=== PATIENT | male | born 1960 | race Caucasian/White ===

== ENCOUNTER 2020-06-15 01:54 | Emergency (ER) | payer SELFPAY ==
--- OUTSIDE RECORDS SUMMARY | 2020-06-15 02:03 | XMS ---
:1960 Author Organization [facility] Support Name Relationship Address Phone UE Unavailable Unavailable Unavailable JULES JACOBSON SISTER [address] [facility] [place] [address] Re-disclosure Warning The records that you are about to access may contain information from federally- assisted alcohol or drug abuse programs. If such information is present, then the following federally mandated warning applies: This information has been disclosed to you from records protected by federal confidentiality rules (42 CFR part 2). The federal rules prohibit you from making any further disclosure of this information unless further disclosure is expressly permitted by the written consent of the person to whom it pertains or as otherwise permitted by 42 CFR part 2. A general authorization for the release of medical or other information is NOT sufficient for this purpose. The Federal rules restrict any use of the information to criminally investigate or prosecute any alcohol or drug abuse patient.The records that you are about to access may contain highly sensitive health information, the redisclosure of which is protected by Article 27-F of the [facility] Public Health law. If you continue you may haveaccess to information: Regarding HIV / AIDS; Provided by facilities licensed or operated by the [facility] Office of Mental Health; or Provided by the [facility] Office for People With Developmental Disabilities. If such information is present, then the following [facility] mandated warning applies: This information has been disclosed to you from confidential records which are protected by state law. State law prohibits you from making any further disclosure of this information without the specific written consent of the person to whom it pertains, or as otherwise permitted by law. Any unauthorized further disclosure in violation of state law may result in a fine or long term sentence or both. A general authorization for the release of medical or other information is NOT sufficient authorization for further disclosure. Insurance Providers Payer name Policy type Policy ID Covered Covered republican's Policy P cathy / Coverage republican ID relationship to Baires Inf ormation type baires SELF PAY SP INSURANCE
[2020-06-15 02:15] VITALS: TEMP 98.3; BMI 29.2
[2020-06-15] MEDS ORDERED: diphenhydrAMINE HCL 50 MG CAPSULE PO ONE (02:46)
[2020-06-15] MEDS ORDERED: predniSONE 20 MG TABLET (UD) PO ONE (02:46)
[2020-06-15] MEDS ORDERED: FAMOTIDINE 20 MG TABLET PO ONE (02:46)
--- NOTE | 2020-06-15 02:47 | PDOC ---
History of Present Illness - General Chief Complaint: Rash Stated Complaint: RASH Time Seen by Provider: 06/15/20 02:21 - History of Present Illness Initial Comments: 06/15/20 03:44 59 yo male with pmh of IDDM presents for rash that has gone for one day. Pt explains he has had similar rash when he took penicillin. PT does explain the rash is all over his body but not on his hands soles, palms, or face. Pt says rash is very itchy. Pt denies any new detergents, soaps, or substances. Pt does drink milk with coffee and has been doing that for many years. Pt denies n/v/d/c, sob, chest pain, fever, chills, recent travel, or insect bite. PMH: DM MEDS: insulin PSH: denies Allergies: penicill Social: denies smoking drinking or drugs Past History - Medical History Allergies/Adverse Reactions: Allergies Allergy/AdvReac Type Severity Reaction Status Date / Time Penicillins Allergy Verified 06/15/20 02:07 Home Medications: Ambulatory Orders Glyburide 5 mg PO DAILY 05/08/12 metFORMIN HCL [Glucophage] 1,000 mg PO BID 05/08/12 Insulin (Levemir) [Levemir Flexpen -] 10 units SQ HS #1 pen 09/23/16 Insulin (Levemir) [Levemir Vial] 10 units SQ HS #0 ml 09/23/16 Insulin Aspart [Novolog Flexpen] 1 unit SQ TID #1 insuln.pen 09/23/16 Insulin Sliding Scale [Novolog Vial Sliding Scale -] 1 vial SQ TIDAC #0 units 09/23/16 Diabetes: Yes (NIDDM) - Psycho-Social/Smoking History Smoking Status: No Smoking History: Never smoked Have you smoked in the past 12 months: No Number of Cigarettes Smoked Daily: 0 If you are a former smoker, when did you quit?: 15 years ago Information on smoking cessation initiated: No - Substance Abuse Hx (Audit-C & DAST Scrn) How often the patient has a drink containing alcohol: Never Score: In Men: 4 or > Positive; In Women: 3 or > Positive: 0 Screen Result (Pos requires Nsg. Audit-10AR): Negative In the last yr the pt used illegal drug/Rx for NonMed reason: No Score: Yes response is considered Positive: 0 Screen Result (Positive result requires Nsg. DAST-10): Negative Review of Systems - Review of Systems Comments:: 06/15/20 03:59 GENERAL/CONSTITUTIONAL: No fever or chills. No weakness. HEAD, EYES, EARS, NOSE AND THROAT: No change in vision. No ear pain or discharge. No sore throat. CARDIOVASCULAR: No chest pain or shortness of breath RESPIRATORY: No cough, wheezing, or hemoptysis. GASTROINTESTINAL: No nausea, vomiting, diarrhea or constipation. GENITOURINARY: No dysuria, frequency, or change in urination. MUSCULOSKELETAL: No joint or muscle swelling or pain. No neck or back pain. NEUROLOGIC: No headache, vertigo, loss of consciousness, or change in strength/sensation. ENDOCRINE: No increased thirst. No abnormal weight change HEMATOLOGIC/LYMPHATIC: No anemia, easy bleeding, or history of blood clots. ALLERGIC/IMMUNOLOGIC:Hives *Physical Exam - Vital Signs Last Vital Signs Temp Pulse Resp BP Pulse Ox 98.3 F 88 20 148/81 100 06/15/20 02:07 06/15/20 02:07 06/15/20 02:07 06/15/20 02:07 06/15/20 02:07 - Physical Exam 06/15/20 03:59 GENERAL: Awake, alert, and fully oriented, in no acute distress HEAD: No signs of trauma, normocephalic, atraumatic EYES: PERRLA, EOMI, sclera anicteric, conjunctiva clear ENT: Auricles normal inspection, hearing grossly normal, nares patent, oropharynx clear without exudates. Moist mucosa NECK: Normal ROM, supple, no lymphadenopathy, JVD, or masses LUNGS: No distress, speaks full sentences, clear to auscultation bilaterally HEART: Regular rate and rhythm, normal S1 and S2, no murmurs, rubs or gallops, peripheral pulses normal and equal bilaterally. ABDOMEN: Soft, nontender, normoactive bowel sounds. No guarding, no rebound. No masses EXTREMITIES : Normal inspection, Normal range of motion, no edema. No clubbing or cyanosis. NEUROLOGICAL: Cranial nerves II through XII grossly intact. Normal speech, normal gait, no focal sensorimotor deficits SKIN: nonblanching hives on extremities, back, and abdomen, buttock and genital. NO lesions noted on palms, soles. No lesions noted on oral mucosa. Exam chaperoned by RAUL Beltre. Medical Decision Making - Medical Decision Making 06/15/20 02:52 59 yo IDDM presents to the ED with rash that started yesterday morning. Pt explains rash is entire body and is itchy and feels similar to his penicillin rash. Pt denies any new detergent, soap, eathing anything new, or any new s ubstance. Will give prednisone, pepcid, and benadryl. Will DC home with 10 of decadron to take tomorrow. Will tell patient to continue taking benadryl for symptomatic relief. Pt after initial medication has felt better so will Discharge. Discharge - Discharge Information Problems reviewed: Yes Clinical Impression/Diagnosis: Food allergy Allergy Qualifiers: Encounter type: initial encounter Qualified Code(s): T78.40XA - Allergy, unspecified, initial encounter Condition: Improved Disposition: HOME - Follow up/Referral Referrals: Avelino Goldman MD [Primary Care Provider] - - Patient Discharge Instructions Patient Printed Discharge Instructions: CHRIS Novak for Food Allergy Additional Instructions: You came to the ED for a rash. This is most likely due to an allergic reaction possibly due to milk. At the ED we gave you pepcid, benadryl, and steroids. We gave you a decadron (steroid) to take at home with you. You should take the medication in 24 hours. You should also take benadryl every 6 hours for itchiness. Please follow up with your pcp within the next few days. If you have any of the following please return: - worsening symptoms - if you have trouble breathing - if you have a rash with fever or nausea and vomiting For any emergent symptoms please call for medical help right away. - Post Discharge Activity
[2020-06-15] MEDS ORDERED: predniSONE 20 MG TABLET (UD) ONE (02:49)
[2020-06-15] MEDS ORDERED: FAMOTIDINE 20 MG TABLET ONE (02:50)
[2020-06-15] MEDS ORDERED: diphenhydrAMINE HCL 25 MG CAPSULE (FP) PO ONE (02:50)
[2020-06-15] MEDS ORDERED: DEXAMETHASONE SOD PHOSPHATE 10 MG/1 ML VIAL PO ONE (03:13)
[2020-06-15] MEDS ORDERED: DEXAMETHASONE SOD PHOSPHATE 10 MG/1 ML VIAL ONE (03:34)
--- NOTE | 2020-06-15 03:39 | PDOC ---
Attending Attestation - Resident Resident Name: AbAlonso - ED Attending Attestation I have performed the following: I have examined & evaluated the patient, The case was reviewed & discussed with the resident, I agree w/resident's findings & plan - HPI HPI: 06/15/20 03:33 Pt comes with allergic reaction. 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 - Physicial Exam PE: 06/15/20 03:43 Pt has hives all over his body; he has been scratching so much that he has abrasions on his skin on arms and trunk - Medical Decision Making 06/15/20 03:43 Home with decadron and benadryl Pt asked to keep a food diary. 06/15/20 04:50 Likely milk allergy Discharge - Discharge Information Problems reviewed: Yes Clinical Impression/Diagnosis: Food allergy Allergy Qualifiers: Encounter type: initial encounter Qualified Code(s): T78.40XA - Allergy, unspecified, initial encounter Condition: Improved Disposition: HOME - Follow up/Referral Referrals: Avelino Goldman MD [Primary Care Provider] - - Patient Discharge Instructions Patient Printed Discharge Instructions: CHRIS Novak for Food Allergy Additional Instructions: You came to the ED for a rash. This is most likely due to an allergic reaction possibly due to milk. At the ED we gave you pepcid, benadryl, and steroids. We gave you a decadron (steroid) to take at home with you. You should take the medication in 24 hours. You should also take benadryl every 6 hours for itchiness. Please follow up with your pcp within the next few days. If you have any of the following please return: - worsening symptoms - if you have trouble breathing - if you have a rash with fever or nausea and vomiting For any emergent symptoms please call for medical help right away. - Post Discharge Activity
[2020-06-15 03:41] VITALS: BP 138/78; PULSE 80
== END 2020-06-15 03:45 | disposition home or self-care (01) ==
LOC: JER 01:54
DX: T78.40XA Allergy, unspecified, initial encounter (principal); Z91.018 Allergy to other foods
CPT/HCPCS: 82962; 99283-25; J1100

== ENCOUNTER 2020-06-15 22:02 | Emergency (ER) | payer OTHER ==
[2020-06-15 22:05] VITALS: TEMP 97.3; BMI 29.2
--- OUTSIDE RECORDS SUMMARY | 2020-06-15 22:21 | XMS ---
:1960 Author Organization [facility] Support Name Relationship Address Phone UE Unavailable Unavailable Unavailable JULES JACOBSON SISTER [address] [facility] [place] [address] JULES JACOBSON Sister [address] [facility] [place] [address] Re-disclosure Warning The records that you are [...] is protected by Article 27-F of the [facility] Public Health law. If you continue you may haveaccess to information: Regarding HIV / AIDS; Provided by facilities licensed or operated by the [facility] Office of Mental Health; or Provided by the [facility] Office for People With Developmental Disabilities. If such information is present, then the following [facility] mandated warning applies: This information has [...] law may result in a fine or nursing home sentence or both. A general authorization for the release of medical or other information is NOT sufficient authorization for further disclosure. Insurance Providers Payer name Policy type Policy ID Covered Covered libertarian's Policy P cathy / Coverage libertarian ID relationship to Baires Inf ormation type baires SELF PAY SP INSURANCE
--- NOTE | 2020-06-15 22:26 | PDOC ---
History of Present Illness - General Chief Complaint: Rash Stated Complaint: RASH Time Seen by Provider: 06/15/20 22:25 - History of Present Illness Initial Comments: 06/15/20 23:27 59yo M with PMHx DM bounceback from last night for a rash that has grown to flexor and extensor surfaces of his arms and legs, and his torso, back, and his inner thighs. It spares his palms and soles. Past History - Medical History Allergies/Adverse Reactions: Allergies Allergy/AdvReac Type Severity Reaction Status Date / Time Penicillins Allergy Verified 06/15/20 22:05 Home Medications: Ambulatory Orders Glyburide 5 mg PO DAILY 05/08/12 metFORMIN HCL [Glucophage] 1,000 mg PO BID 05/08/12 Insulin (Levemir) [Levemir Flexpen -] 10 units SQ HS #1 pen 09/23/16 Insulin (Levemir) [Levemir Vial] 10 units SQ HS #0 ml 09/23/16 Insulin Aspart [Novolog Flexpen] 1 unit SQ TID #1 insuln.pen 09/23/16 Insulin Sliding Scale [Novolog Vial Sliding Scale -] 1 vial SQ TIDAC #0 units 09/23/16 COPD: No Diabetes: Yes (NIDDM) - Immunization History Td Vaccination: Yes Immunization Up to Date: Yes - Psycho-Social/Smoking History Smoking Status: No Smoking History: Never smoked Have you smoked in the past 12 months: No Number of Cigarettes Smoked Daily: 0 If you are a former smoker, when did you quit?: 15 years ago - Substance Abuse Hx (Audit-C & DAST Scrn) How often the patient has a drink containing alcohol: Never Score: In Men: 4 or > Positive; In Women: 3 or > Positive: 0 Screen Result (Pos requires Nsg. Audit-10AR): Negative In the last yr the pt used illegal drug/Rx for NonMed reason: No Score: Yes response is considered Positive: 0 Screen Result (Positive result requires Nsg. DAST-10): Negative Review of Systems - Review of Systems Able to Perform ROS?: Yes Constitutional: No: Chills, Diaphoresis, Fever HEENTM: No: Blurred Vision, Recent change in vision, Nose Pain, Nose Congestion Respiratory: No: Cough, Shortness of Breath Cardiac (ROS): No: Chest Pain ABD/GI: No: Abdominal Distended, Diarrhea, Nausea, Vomiting : No: Burning, Dysuria Musculoskeletal: No: Back Pain, Muscle Weakness, Neck Pain Integumentary: Yes: Change in Color, Dryness, Lesions, Pruritus, Rash Neurological: No: Headache, Numbness, Paresthesia Endocrine: No: Symptoms Reported Hematologic/Lymphatic: No: Symptoms Reported All Other Systems: Reviewed and Negative *Physical Exam - Vital Signs Last Vital Signs Temp Pulse Resp BP Pulse Ox 97.3 F L 90 18 166/85 99 06/15/20 22:04 06/15/20 22:04 06/15/20 22:04 06/15/20 22:04 06/15/20 22:04 - Physical Exam General Appearance: Yes: Nourished, Appropriately Dressed, Apparent Distress HEENT: positive: EOMI, XIANG, Normal Voice Neck: positive: Trachea midline, Supple Respiratory/Chest: positive: Lungs Clear, Normal Breath Sounds. negative: Chest Tender Cardiovascular: positive: Regular Rhythm, Regular Rate Gastrointestinal/Abdominal: positive: Normal Bowel Sounds, Soft Musculoskeletal: positive: Normal Inspection. 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 NML intact, Fully Oriented, Alert Discharge - Discharge Information Problems reviewed: Yes Clinical Impression/Diagnosis: Urticaria, Pruritic condition, Rash and nonspecific skin eruption Allergy Qualifiers: Encounter type: sequela Qualified Code(s): T78.40XS - Allergy, unspecified, sequela Disposition: HOME - Admission No - Follow up/Referral Referrals: Rajat Brooks MD [Primary Care Provider] - Betty Mcnamara MD [Staff Physician] - - Patient Discharge Instructions Patient Printed Discharge Instructions: DI for Contact Dermatitis, DI for General Allergic Reactions, DI for Atopic Dermatitis-Adult Additional Instructions: Lo vieron en el servicio de urgencias por christian erupcin que se hoyt extendido por todo el cuerpo. Lo evaluamos y lo consideramos seguro para el miguel. Aplique la crema segn sea necesario a las lesiones de berry cuerpo; debera ayudar con la picazn. Comunquese y sushila un seguimiento con shant Mcnamara (Dermatologa) dentro de las 48 horas posteriores a berry salida del departamento de emergencias hoy. Regrese con cualquier sntoma nuevo o que empeore. [place] benadryl 25 mg - 50 mg cada 6 a 8 horas segn sea necesario, sin exceder los 300 mg / da. Mantn las zonas limpias y trata de evitar rayar a toda perea. Aplique la locin de hidrocortisona en las reas afectadas segn sea necesario. Dyan de beber la leche con tu caf. Print Language: [place] - Post Discharge Activity
[2020-06-15] MEDS ORDERED: diphenhydrAMINE HCL 25 MG CAPSULE (FP) PO ONE ×2 (22:29→22:34)
[2020-06-15] MEDS ORDERED: HYDROCORTISONE 2.5% LOTION - 1 BOTTLE TP ONE (23:21)
--- NOTE | 2020-06-15 23:45 | PDOC ---
Documentation entered by Isamar Cage SCRIBE, acting as scribe for Marily Warren MD. Marily Warren MD: This documentation has been prepared by the Deo baumann Xhesika, SCRIBE, under my direction and personally reviewed by me in its entirety. I confirm that the documentation accurately reflects all work, treatment, procedures, and medical decision making performed by me. Attending Attestation - Resident Resident Name: Jeet Ruiz - ED Attending Attestation I have performed the following: I have examined & evaluated the patient, The case was reviewed & discussed with the resident, I agree w/resident's findings & plan, Exceptions are as noted - HPI HPI: 06/15/20 22:31 The patient is a 59y/o male with a pmh of IDDM who presents to the ED for generalized rash x2days. Pt explains he has had similar rash when he took penicillin. Pt was seen here in the ED and was dxc home with 10 of decadron and Benadryl. Pt states he still feels itcy prompting is arrival to the ED. Pt denies any new detergents, soaps, or substances. Pt denies n/v/d/c, sob, chest pain, fever, chills, recent travel, or insect bite. Allergies:NKDA PCP: Rajat Hernandez - Physicial Exam PE: 06/15/20 23:41 GENERAL: Awake, alert, and fully oriented, in no acute distress HEAD: No signs of trauma EYES: PERRLA, EOMI, sclera anicteric, conjunctiva clear ENT: Auricles normal inspection, hearing grossly normal, nares patent, oropharynx clear without exudates. Moist mucosa NECK: Normal ROM, supple, no lymphadenopathy, JVD, or masses LUNGS: Breath sounds equal, clear to auscultation bilaterally. No wheezes, and no crackles HEART: Regular rate and rhythm, normal S1 and S2, no murmurs, rubs or gallops ABDOMEN: Soft, nontender, normoactive bowel sounds. No guarding, no rebound. No masses EXTREMITIES: Normal range of motion, no edema. No clubbing or cyanosis. No cords, erythema, or tenderness NEUROLOGICAL: Cranial nerves II through XII grossly intact. SKIN: +dry skin. +areas of excoriation on forearms. +areas of scattered hives on extremities and back. - Medical Decision Making 06/15/20 23:54 this pt has no breathing difficulties, no wheezing,no uvular edema pt is afebrile and has no constitutional complaints imp hives/allergies plan discharge home w benadryl,hydrocortisone cream,dermatology follow up Discharge - Discharge Information Problems reviewed: Yes Clinical Impression/Diagnosis: Urticaria, Pruritic condition, Rash and nonspecific skin eruption Allergy Qualifiers: Encounter type: sequela Qualified Code(s): T78.40XS - Allergy, unspecified, sequela Disposition: HOME - Follow up/Referral Referrals: Betty Mcnamara MD [Staff Physician] - Rajat Brooks MD [Primary Care Provider] - - Patient Discharge Instructions Patient Printed Discharge Instructions: DI for Contact Dermatitis, DI for General Allergic Reactions, DI for Atopic Dermatitis-Adult Additional Instructions: Lo vieron en el servicio de urgencias por christian erupcin que se hoyt extendido por todo el cuerpo. Lo evaluamos y lo consideramos seguro para el miguel. Aplique la crema segn sea necesario a las lesiones de berry cuerpo; debera ayudar con la picazn. Comunquese y sushila un seguimiento con la Dra. Betty Mcnamara (Dermatologa) dentro de las 48 horas posteriores a berry salida del departamento de emergencias hoy. Regrese con cualquier sntoma nuevo o que empeore. [place] benadryl 25 mg - 50 mg cada 6 a 8 horas segn sea necesario, sin exceder los 300 mg / da. Mantn las zonas limpias y trata de evitar rayar a toda perea. Aplique la locin de hidrocortisona en las reas afectadas segn sea necesario. Dyan de beber la leche con tu caf. Print Language: [place] - Post Discharge Activity
[2020-06-16 00:02] VITALS: BP 145/85; PULSE 82
== END 2020-06-16 00:02 | disposition home or self-care (01) ==
LOC: JER 22:02
DX: R21 Rash and other nonspecific skin eruption (principal); L50.0 Allergic urticaria; T78.40XA Allergy, unspecified, initial encounter
CPT/HCPCS: 99283-25

== ENCOUNTER 2020-11-24 10:37 | Emergency (ER) | payer OTHER ==
[2020-11-24 10:47] VITALS: BP 162/90; PULSE 102; TEMP 98.2; BMI 26.7
[2020-11-24 11:55] LABS: BASO % 0.1 % (0-2.0); EOS % 0.3 % (0-4.5); HEMATOCRIT 35.4 % (35.4-49); HEMOGLOBIN 12.4 GM/dL (11.7-16.9); LYMPH % 7.8 % (8-40); MCH 32.6 pg (25.7-33.7); MCHC 35.1 g/dl (32.0-35.9); MEAN CELL VOLUME 92.8 fl (80-96); MEAN PLT VOLUME 8.9 fl (7.5-11.1); NEUT % 83.8 % (42.8-82.8); PLATELET COUNT 200 K/MM3 (134-434); RBC 3.81 M/mm3 (4.00-5.60); RDW 12.6 % (11.9-15.9); WHITE BLOOD COUNT 13.6 K/mm3 (4.0-10.0)
[2020-11-24 11:56] LABS: INR 0.98 (0.83-1.09); PROTHROMBIN TIME (PATIENT) 12.1 SEC (9.7-13.0)
[2020-11-24 11:59] LABS: ACTIVATED PTT 34.3 SECONDS (25.2-36.5)
[2020-11-24 12:03] LABS: POTASSIUM 4.5 mmol/L (3.5-5.1)
[2020-11-24 12:05] LABS: ALBUMIN 3.4 g/dl (3.4-5.0); BLOOD UREA NITROGEN 21.4 mg/dL (7-18); CALCIUM 8.4 mg/dL (8.5-10.1)
[2020-11-24 12:08] LABS: CREATININE 1.1 mg/dL (0.55-1.3)
[2020-11-24 12:10] LABS: BILIRUBIN,TOTAL 0.7 mg/dL (0.2-1)
[2020-11-24] MEDS ORDERED: DALBAVANCIN HCL 1,500 MG in DEXTROSE 5%-WATER - 500 ML IVPB ONE (12:27)
[2020-11-24] MEDS ORDERED: metFORMIN HCL 500 MG TABLET (FP) PO ONE (12:36)
[2020-11-24] MEDS ORDERED: metFORMIN HCL 500 MG TABLET (FP) ONE (12:36)
[2020-11-24] MEDS ORDERED: DALBAVANCIN HCL 500 MG VIAL (RESTRICTED TO ID ONLY) IVPB ONE (12:36)
[2020-11-24] MEDS ORDERED: SODIUM CHLORIDE 1,000 ML IV STA (12:49)
== END 2020-11-24 16:25 | disposition home or self-care (01) ==
LOC: JER 10:37
PROC: 3E03329 Introduction of Other Anti-infective into Peripheral Vein, Percutaneous Approach (ICD-10-PCS; principal; 2020-11-24)
PROC: 3E0337Z Introduction of Electrolytic and Water Balance Substance into Peripheral Vein, Percutaneous Approach (ICD-10-PCS; 2020-11-24)
DX: L03.115 Cellulitis of right lower limb (principal)
CPT/HCPCS: 36415; 73630-TC-RT-FY; 80053; 82962; 85025; 85610; 85730; 99284-25; J0875

== ENCOUNTER 2020-11-28 09:17 | Inpatient (IN) | payer OTHER ==
[2020-11-28] MEDS ORDERED: SODIUM CHLORIDE 0.9% 1000 ML INFUS.BAG IV ONE (09:58)
[2020-11-28] MEDS ORDERED: CLINDAMYCIN 600MG PREMIX IVPB 600 MG/50 ML BAG IVPB ONE ×3 (10:22→18:07)
[2020-11-28 11:11] LABS: BASO % 0.3 % (0-2.0); EOS % 1.9 % (0-4.5); HEMATOCRIT 33.7 % (35.4-49); HEMOGLOBIN 11.4 GM/dL (11.7-16.9); LYMPH % 14.4 % (8-40); MCH 31.8 pg (25.7-33.7); MCHC 33.9 g/dl (32.0-35.9); MONO % 9.3 % (3.8-10.2); NEUT % 74.1 % (42.8-82.8); PLATELET COUNT 275 K/MM3 (134-434); RBC 3.59 M/mm3 (4.00-5.60); RDW 12.6 % (11.9-15.9); WHITE BLOOD COUNT 10.1 K/mm3 (4.0-10.0)
[2020-11-28 11:20] LABS: INR 0.98 (0.83-1.09); PROTHROMBIN TIME (PATIENT) 12.1 SEC (9.7-13.0)
[2020-11-28 11:23] LABS: ACTIVATED PTT 29.1 SECONDS (25.2-36.5)
[2020-11-28] MEDS ORDERED: AZTREONAM 1 GM VIAL (RESTRICTED TO ID) ONE (11:26)
[2020-11-28 11:38] LABS: BLOOD UREA NITROGEN 18.2 mg/dL (7-18); CALCIUM 8.7 mg/dL (8.5-10.1); CHLORIDE 100 mmol/L (98-107); SODIUM 130 mmol/L (136-145)
[2020-11-28 11:39] LABS: ALBUMIN 2.6 g/dl (3.4-5.0); ANION GAP 7 MMOL/L (8-16); CO2 23 mmol/L (21-32); GLUCOSE,RANDOM 425 mg/dL (74-106); POTASSIUM 6.8 mmol/L (3.5-5.1)
[2020-11-28 11:41] LABS: SGOT/AST 48 U/L (15-37); SGPT/ALT 19 U/L (13-61)
[2020-11-28] MEDS: AZTREONAM 2 GM in DEXTROSE 5%-WATER 100 ML IVPB ONE ×2 (11:42→11:43)
[2020-11-28 11:43] LABS: TOT PROT 7.1 g/dl (6.4-8.2)
[2020-11-28 11:44] LABS: ALK PHOS 146 U/L (45-117)
[2020-11-28 11:47] LABS: BILIRUBIN,TOTAL 0.7 mg/dL (0.2-1)
[2020-11-28] MEDS ORDERED: Insulin (LOG) Aspart 100 UNITS/ML VIAL SQ ONE (11:49)
[2020-11-28 12:22] LABS: POTASSIUM 4.5 mmol/L (3.5-5.1)
[2020-11-28 12:23] LABS: BLOOD UREA NITROGEN 17.7 mg/dL (7-18)
[2020-11-28 12:27] LABS: CREATININE 0.9 mg/dL (0.55-1.3)
[2020-11-28] MEDS ORDERED: ACETAMINOPHEN 325 MG TABLET (FP) PO PRN (12:59)
[2020-11-28] MEDS: INSULIN SLIDING SCALE (NOVOLOG) 1 VIAL SQ SCH ×2 (16:38→22:02)
[2020-11-28] MEDS ORDERED: CEFEPIME 1 GM/100 ML BAG IVPB ONE (18:07)
[2020-11-28] MEDS: CEFEPIME 1 GM in DEXTROSE 5%-WATER 1 GM/100 ML BAG IVPB SCH (18:08)
[2020-11-28] MEDS: CLINDAMYCIN 600MG PREMIX IVPB 600 MG/50 ML BAG IVPB SCH (18:08)
[2020-11-28] MEDS ORDERED: INSULIN (LEVEMIR) 100 UNITS/ML UNITS SQ SCH (22:00)
[2020-11-28] MEDS: ATORVASTATIN CA 10 MG TABLET (FP) PO SCH (22:05)
[2020-11-29] MEDS ORDERED: CEFEPIME HCL 1 GM VIAL (RESTRICTED TO ID) ONE ×3 (01:04→17:04)
[2020-11-29] MEDS ORDERED: DEXTROSE 5%-WATER 100 ML IVPB ONE ×3 (01:04→17:04)
[2020-11-29 01:21] VITALS: BMI 25.7
[2020-11-29] MEDS: CLINDAMYCIN 600MG PREMIX IVPB 600 MG/50 ML BAG IVPB SCH ×3 (02:26→17:05)
[2020-11-29] MEDS ORDERED: MELATONIN 5 MG TABLETS PO ONE (02:28)
[2020-11-29] MEDS: CEFEPIME 1 GM in DEXTROSE 5%-WATER 1 GM/100 ML BAG IVPB SCH ×3 (02:42→17:42)
[2020-11-29] MEDS: INSULIN SLIDING SCALE (NOVOLOG) 1 VIAL SQ SCH ×4 (05:59→21:16)
[2020-11-29 09:31] LABS: BASO % 0.3 % (0-2.0); EOS % 2.4 % (0-4.5); HEMATOCRIT 31.7 % (35.4-49); HEMOGLOBIN 10.9 GM/dL (11.7-16.9); LYMPH % 21.7 % (8-40); MCH 31.9 pg (25.7-33.7); MCHC 34.4 g/dl (32.0-35.9); MEAN CELL VOLUME 92.6 fl (80-96); MEAN PLT VOLUME 8.5 fl (7.5-11.1); MONO % 9.2 % (3.8-10.2); NEUT % 66.4 % (42.8-82.8); PLATELET COUNT 318 K/MM3 (134-434); RBC 3.43 M/mm3 (4.00-5.60); RDW 12.6 % (11.9-15.9); WHITE BLOOD COUNT 10.3 K/mm3 (4.0-10.0)
[2020-11-29 09:40] LABS: POTASSIUM 3.8 mmol/L (3.5-5.1)
[2020-11-29 09:45] LABS: BLOOD UREA NITROGEN 12.8 mg/dL (7-18); CALCIUM 8.3 mg/dL (8.5-10.1)
[2020-11-29 09:46] LABS: ALBUMIN 2.4 g/dl (3.4-5.0)
[2020-11-29] MEDS: ENOXAPARIN NA (PORCINE) 40 MG/0.4 ML DISP.SYRIN SQ SCH (09:47)
[2020-11-29 09:48] LABS: CREATININE 0.7 mg/dL (0.55-1.3)
[2020-11-29] MEDS: LOSARTAN POTASSIUM 50 MG TABLET PO SCH (09:48)
[2020-11-29 09:50] LABS: BILIRUBIN,TOTAL 0.4 mg/dL (0.2-1); TOT PROT 6.1 g/dl (6.4-8.2)
[2020-11-29] MEDS ORDERED: INSULIN (LEVEMIR) 100 UNITS/ML UNITS SQ ONE (21:02)
[2020-11-29] MEDS ORDERED: INSULIN (NOVOLOG) ASPART 100 UNITS/ML 10ML VIAL ONE (21:02)
[2020-11-29] MEDS: INSULIN (LEVEMIR) 100 UNITS/ML UNITS SQ SCH (21:16)
[2020-11-29] MEDS: ATORVASTATIN CA 10 MG TABLET (FP) PO SCH (21:17)
[2020-11-30] MEDS ORDERED: DEXTROSE 5%-WATER 100 ML IVPB ONE ×3 (00:56→17:51)
[2020-11-30] MEDS ORDERED: CEFEPIME HCL 1 GM VIAL (RESTRICTED TO ID) ONE ×3 (00:56→17:51)
[2020-11-30] MEDS: CLINDAMYCIN 600MG PREMIX IVPB 600 MG/50 ML BAG IVPB SCH ×3 (01:09→18:37)
[2020-11-30] MEDS: CEFEPIME 1 GM in DEXTROSE 5%-WATER 1 GM/100 ML BAG IVPB SCH ×3 (01:59→17:53)
[2020-11-30] MEDS: INSULIN SLIDING SCALE (NOVOLOG) 1 VIAL SQ SCH ×4 (06:29→21:17)
[2020-11-30] MEDS: ENOXAPARIN NA (PORCINE) 40 MG/0.4 ML DISP.SYRIN SQ SCH (09:51)
[2020-11-30] MEDS: LOSARTAN POTASSIUM 50 MG TABLET PO SCH (09:51)
[2020-11-30] MEDS ORDERED: INSULIN (NOVOLOG) ASPART 100 UNITS/ML 10ML VIAL ONE (11:17)
[2020-11-30] MEDS: ATORVASTATIN CA 10 MG TABLET (FP) PO SCH (21:16)
[2020-11-30] MEDS: INSULIN (LEVEMIR) 100 UNITS/ML UNITS SQ SCH (21:19)
[2020-12-01] MEDS ORDERED: CEFEPIME HCL 1 GM VIAL (RESTRICTED TO ID) ONE ×3 (01:35→17:24)
[2020-12-01] MEDS ORDERED: DEXTROSE 5%-WATER 100 ML IVPB ONE ×3 (01:36→17:24)
[2020-12-01] MEDS: CEFEPIME 1 GM in DEXTROSE 5%-WATER 1 GM/100 ML BAG IVPB SCH ×2 (02:06→12:32)
[2020-12-01] MEDS: CLINDAMYCIN 600MG PREMIX IVPB 600 MG/50 ML BAG IVPB SCH ×4 (02:09→18:44)
[2020-12-01] MEDS: INSULIN SLIDING SCALE (NOVOLOG) 1 VIAL SQ SCH ×4 (06:32→22:36)
[2020-12-01] MEDS ORDERED: LIDOCAINE HCL 2% (20ML MULTI-DOSE VIAL) ONE (09:46)
[2020-12-01] MEDS ORDERED: MIDAZOLAM HCL 2 MG/2 ML SINGLE DOSE VIAL ONE (10:41)
[2020-12-01] MEDS ORDERED: PROPOFOL 20 ML ONE (10:41)
[2020-12-01] MEDS: ENOXAPARIN NA (PORCINE) 40 MG/0.4 ML DISP.SYRIN SQ SCH (10:42)
[2020-12-01] MEDS ORDERED: LIDOCAINE HCL 2% (50ML VIAL) NR ONE (10:51)
[2020-12-01] MEDS ORDERED: BACITRACIN 50,000 UNITS VIAL NR ONE (11:00)
[2020-12-01] MEDS ORDERED: CEFEPIME HCL/D5W 1 GM/50 ML PREMIX BAG IVPB ONE (11:11)
[2020-12-01] MEDS ORDERED: CLINDAMYCIN 600 MG PREMIX BAG IVPB ONE (11:14)
[2020-12-01] MEDS ORDERED: ONDANSETRON 4 MG/2 ML VIAL IVPUSH PRN (11:16)
[2020-12-01] MEDS ORDERED: LACTATED RINGERS SOLUTION 1,000 ML IV SCH (11:30)
[2020-12-01] MEDS: LOSARTAN POTASSIUM 50 MG TABLET PO SCH (12:10)
[2020-12-01] MEDS ORDERED: CEFEPIME 1 GM in DEXTROSE 5%-WATER 1 GM/100 ML BAG IVPB SCH (18:00)
[2020-12-01] MEDS: CEFEPIME 1 GM in SODIUM CHLORIDE 100 ML IVPB SCH (18:45)
[2020-12-01] MEDS: ATORVASTATIN CA 10 MG TABLET (FP) PO SCH (22:36)
[2020-12-01] MEDS: INSULIN (LEVEMIR) 100 UNITS/ML UNITS SQ SCH (22:37)
[2020-12-02] MEDS ORDERED: CEFEPIME HCL 1 GM VIAL (RESTRICTED TO ID) ONE ×3 (02:42→17:10)
[2020-12-02] MEDS ORDERED: SODIUM CHLORIDE 100 ML IVPB ONE ×3 (02:42→17:11)
[2020-12-02] MEDS: CLINDAMYCIN 600MG PREMIX IVPB 600 MG/50 ML BAG IVPB SCH ×4 (02:43→18:02)
[2020-12-02] MEDS: CEFEPIME 1 GM in SODIUM CHLORIDE 100 ML IVPB SCH ×4 (03:19→18:02)
[2020-12-02] MEDS: INSULIN SLIDING SCALE (NOVOLOG) 1 VIAL SQ SCH ×4 (06:20→22:37)
[2020-12-02] MEDS: ENOXAPARIN NA (PORCINE) 40 MG/0.4 ML DISP.SYRIN SQ SCH (10:24)
[2020-12-02] MEDS: LOSARTAN POTASSIUM 50 MG TABLET PO SCH (10:25)
[2020-12-02] MEDS ORDERED: INSULIN (LEVEMIR) 100 UNITS/ML UNITS SQ SCH (12:54)
[2020-12-02] MEDS: ATORVASTATIN CA 10 MG TABLET (FP) PO SCH (22:35)
[2020-12-03] MEDS ORDERED: PT OWN MED DRAWER 7, Y5N ONE (01:50)
[2020-12-03] MEDS ORDERED: CEFEPIME HCL 1 GM VIAL (RESTRICTED TO ID) ONE ×2 (01:53→09:12)
[2020-12-03] MEDS ORDERED: SODIUM CHLORIDE 100 ML IVPB ONE ×2 (01:53→09:13)
[2020-12-03] MEDS: CLINDAMYCIN 600MG PREMIX IVPB 600 MG/50 ML BAG IVPB SCH ×2 (01:54→09:31)
[2020-12-03] MEDS: CEFEPIME 1 GM in SODIUM CHLORIDE 100 ML IVPB SCH ×2 (02:31→09:31)
[2020-12-03] MEDS: INSULIN SLIDING SCALE (NOVOLOG) 1 VIAL SQ SCH ×2 (06:38→13:13)
[2020-12-03] MEDS: ENOXAPARIN NA (PORCINE) 40 MG/0.4 ML DISP.SYRIN SQ SCH (09:31)
[2020-12-03] MEDS: LOSARTAN POTASSIUM 50 MG TABLET PO SCH (09:31)
[2020-12-03 13:45] VITALS: BP 137/79; PULSE 89; TEMP 98.1
== END 2020-12-03 16:20 | disposition home or self-care (01) | DRG 197 ==
LOC: JER 09:17 → JERBED 12:45 → J5S 21:20
PROVIDERS: ADMIT Internal Medicine; ATTEND Internal Medicine
PROC: 0J9Q0ZX Drainage of Right Foot Subcutaneous Tissue and Fascia, Open Approach, Diagnostic (ICD-10-PCS; 2020-12-01)
PROC: 0JBQ0ZZ Excision of Right Foot Subcutaneous Tissue and Fascia, Open Approach (ICD-10-PCS; principal; 2020-12-01 10:00)
DX: E11.52 Type 2 diabetes mellitus with diabetic peripheral angiopathy with gangrene (principal); E11.628 Type 2 diabetes mellitus with other skin complications; L03.115 Cellulitis of right lower limb; E11.65 Type 2 diabetes mellitus with hyperglycemia; L97.519 Non-pressure chronic ulcer of other part of right foot with unspecified severity; L02.611 Cutaneous abscess of right foot; Z88.0 Allergy status to penicillin; E66.9 Obesity, unspecified; Z68.25 Body mass index [BMI] 25.0-25.9, adult; Z79.4 Long term (current) use of insulin; I96 Gangrene, not elsewhere classified
CPT/HCPCS: 36415; 71045-TC-FY; 73630-TC-LT; 73630-TC-RT-FY; 73718-TC-RT; 80048; 80053; 82962; 83036; 85025; 85610; 85651; 85730; 86140; 87040; 87070; 87205; 93005; 93010; 93971-TC; 94760; 99285-25; C9803; U0003; U0005

== ENCOUNTER 2023-09-21 11:23 | Inpatient (IN) | payer OTHER ==
[2023-09-21] MEDS ORDERED: LACTATED RINGERS SOLUTION 1000 ML INFUS.BAG IV ONE ×2 (13:30→15:34)
[2023-09-21 14:46] LABS: BASO % 0.6 % (0-2.0); EOS % 1.4 % (0-4.5); HEMATOCRIT 27.8 % (35.4-49); HEMOGLOBIN 9.3 GM/dL (11.7-16.9); LYMPH % 16.1 % (8-40); MCH 30.3 pg (25.7-33.7); MCHC 33.4 g/dl (32.0-35.9); MEAN CELL VOLUME 90.8 fl (80-96); MEAN PLT VOLUME 8.7 fl (7.5-11.1); MONO % 4.3 % (3.8-10.2); NEUT % 77.6 % (42.8-82.8); PLATELET COUNT 379 10^3/uL (134-434); RBC 3.06 M/mm3 (4.00-5.60); WHITE BLOOD COUNT 8.2 K/mm3 (4.0-10.0)
[2023-09-21 14:47] LABS: INR 0.97 (0.83-1.09); PROTHROMBIN TIME (PATIENT) 11.2 SEC (9.7-13.0)
[2023-09-21 14:50] LABS: ACTIVATED PTT 30.4 SECONDS (25.2-36.5)
[2023-09-21 15:18] LABS: ALBUMIN 2.7 g/dl (3.4-5.0); BLOOD UREA NITROGEN 57.8 mg/dL (7-18); MAGNESIUM 2.7 mg/dL (1.8-2.4)
[2023-09-21] MEDS ORDERED: DEXTROSE 50%-WATER - 25 GM/50 ML VIAL IVPUSH ONE (15:20)
[2023-09-21] MEDS ORDERED: CALCIUM GLUCONATE 10% - 1,000 MG/10 ML VIAL IVPUSH ONE (15:20)
[2023-09-21] MEDS ORDERED: INSULIN REGULAR HUMAN 100 UNITS/ML *VIAL IVPUSH ONE (15:20)
[2023-09-21 15:21] LABS: CREATININE 2.4 mg/dL (0.55-1.3)
[2023-09-21 15:23] LABS: BILIRUBIN,TOTAL 0.2 mg/dL (0.2-1); TOT PROT 6.5 g/dl (6.4-8.2)
[2023-09-21 15:27] LABS: N-TERMINAL BNP 1031.4 pg/ml (5-125)
[2023-09-21] MEDS ORDERED: SODIUM ZIRCONIUM CYCLOSILICATE (LOKELMA) 5 GM PACKET PO ONE (15:30)
[2023-09-21 18:24] LABS: EPI CELLS 7 /uL (0-25.1); HYALINE CASTS 1 /uL (0-3.1); PH,URINE 6.5 (5.0-8.0); URINE APPEARANCE CLEAR; URINE BACTERIA 4 /uL (0-1359); URINE BILIRUBIN NEGATIVE (NEGATIVE); URINE COLOR YELLOW; URINE GLUCOSE (UA) 1+ (NEGATIVE); URINE KETONE NEGATIVE (NEGATIVE); URINE LEUK ESTERASE NEGATIVE (NEGATIVE); URINE NITRITE NEGATIVE (NEGATIVE); URINE PROTEIN 3+ (NEGATIVE); URINE RBC 26 /uL (0-23.9); URINE UROBILINOGEN 0.2 mg/dL (0.2-1.0); URINE WBC 8 /uL (0-25.8)
[2023-09-21] MEDS ORDERED: DOCUSATE SODIUM 100 MG CAPSULE (FP) PO PRN (21:49)
[2023-09-21] MEDS ORDERED: hydrALAZINE HCL 20 MG/ML VIAL IVPUSH ONE (21:51)
[2023-09-21] MEDS ORDERED: SODIUM CHLORIDE 0.45% 1,000 ML IV SCH (22:00)
[2023-09-21 23:11] VITALS: BMI 24.3
[2023-09-22] MEDS: ACETAMINOPHEN 325 MG TABLET (FP) PO PRN ×2 (02:57→10:03)
[2023-09-22 08:07] LABS: BASO % 0.6 % (0-2.0); EOS % 2.4 % (0-4.5); HEMOGLOBIN 7.7 GM/dL (11.7-16.9); LYMPH % 25.5 % (8-40); MCH 30.4 pg (25.7-33.7); MCHC 33.3 g/dl (32.0-35.9); MEAN CELL VOLUME 91.3 fl (80-96); MONO % 5.4 % (3.8-10.2); NEUT % 66.1 % (42.8-82.8); PLATELET COUNT 275 10^3/uL (134-434); RBC 2.52 M/mm3 (4.00-5.60); RDW 12.8 % (11.9-15.9); WHITE BLOOD COUNT 6.7 K/mm3 (4.0-10.0)
[2023-09-22 08:14] LABS: POTASSIUM 5.6 mmol/L (3.5-5.1)
[2023-09-22 08:18] LABS: BLOOD UREA NITROGEN 46.5 mg/dL (7-18)
[2023-09-22] MEDS ORDERED: LISINOPRIL 10 MG TABLET PO SCH (10:00)
[2023-09-22] MEDS ORDERED: FLU VACCINE (FLULAVAL) PF 60 MCG/0.5 ML SYRINGE 2023-2024 IM ONE (10:00)
[2023-09-22] MEDS ORDERED: PANTOPRAZOLE SODIUM 40 MG VIAL IVPUSH SCH (11:00)
[2023-09-22] MEDS ORDERED: INSULIN (NOVOLOG) ASPART 100 UNITS/ML 10ML VIAL ONE (13:03)
[2023-09-22] MEDS: INSULIN ASPART SLIDING SCALE (NOVOLOG) 1 VIAL SQ SCH ×3 (13:06→21:47)
[2023-09-22] MEDS: SODIUM ZIRCONIUM CYCLOSILICATE (LOKELMA) 5 GM PACKET PO SCH (15:58)
[2023-09-22] MEDS: HEPARIN NA (PORCINE) 5,000 UNITS/ML 1ML VIAL SQ SCH ×2 (15:58→21:45)
[2023-09-23] MEDS: INSULIN ASPART SLIDING SCALE (NOVOLOG) 1 VIAL SQ SCH ×5 (06:18→21:22)
[2023-09-23 07:20] LABS: BASO % 0.6 % (0-2.0); EOS % 3.2 % (0-4.5); HEMATOCRIT 28.6 % (35.4-49); HEMOGLOBIN 9.6 GM/dL (11.7-16.9); LYMPH % 25.9 % (8-40); MCHC 33.5 g/dl (32.0-35.9); MEAN CELL VOLUME 89.6 fl (80-96); MEAN PLT VOLUME 9.1 fl (7.5-11.1); MONO % 6.1 % (3.8-10.2); NEUT % 64.2 % (42.8-82.8); PLATELET COUNT 279 10^3/uL (134-434); RBC 3.19 M/mm3 (4.00-5.60); WHITE BLOOD COUNT 7.6 K/mm3 (4.0-10.0)
[2023-09-23 07:46] LABS: POTASSIUM 5.3 mmol/L (3.5-5.1)
[2023-09-23 08:18] LABS: BLOOD UREA NITROGEN 42.2 mg/dL (7-18); CALCIUM 8.3 mg/dL (8.5-10.1)
[2023-09-23 08:19] LABS: ALBUMIN 2.4 g/dl (3.4-5.0)
[2023-09-23 08:22] LABS: CREATININE 1.7 mg/dL (0.55-1.3)
[2023-09-23 08:23] LABS: BILIRUBIN,TOTAL 0.3 mg/dL (0.2-1); TOT PROT 5.8 g/dl (6.4-8.2)
[2023-09-23] MEDS: SODIUM ZIRCONIUM CYCLOSILICATE (LOKELMA) 5 GM PACKET PO SCH ×2 (09:31→21:07)
[2023-09-23] MEDS: POLYETHYLENE GLYCOL (HEALTHYLAX) 3350 17 GM PACKET PO SCH ×2 (09:31→21:07)
[2023-09-23] MEDS: amLODIPine BESYLATE 5 MG TABLET (FP) PO SCH (09:33)
[2023-09-23 12:46] LABS: POTASSIUM 5.4 mmol/L (3.5-5.1)
[2023-09-23 12:49] LABS: CALCIUM 8.2 mg/dL (8.5-10.1)
[2023-09-23 12:50] LABS: BLOOD UREA NITROGEN 39.7 mg/dL (7-18)
[2023-09-23 12:53] LABS: CREATININE 1.7 mg/dL (0.55-1.3)
[2023-09-23] MEDS: HEPARIN NA (PORCINE) 5,000 UNITS/ML 1ML VIAL SQ SCH ×2 (13:33→21:07)
[2023-09-23] MEDS: SODIUM CHLORIDE 0.45% 1,000 ML IV SCH (17:19)
[2023-09-23] MEDS ORDERED: INSULIN (NOVOLOG) ASPART 100 UNITS/ML 10ML VIAL ONE (21:20)
[2023-09-23] MEDS: INSULIN (LEVEMIR) 100 UNITS/ML UNITS SQ SCH (21:22)
[2023-09-24] MEDS: HEPARIN NA (PORCINE) 5,000 UNITS/ML 1ML VIAL SQ SCH ×3 (06:01→21:29)
[2023-09-24] MEDS: INSULIN ASPART SLIDING SCALE (NOVOLOG) 1 VIAL SQ SCH ×4 (06:02→21:30)
[2023-09-24] MEDS: INSULIN (LEVEMIR) 100 UNITS/ML UNITS SQ SCH ×2 (06:02→21:29)
[2023-09-24 06:14] LABS: EPI CELLS 3 /uL (0-25.1); HYALINE CASTS 0 /uL (0-3.1); PH,URINE 6.5 (5.0-8.0); URINE APPEARANCE CLEAR; URINE BACTERIA 35 /uL (0-1359); URINE BILIRUBIN NEGATIVE (NEGATIVE); URINE COLOR YELLOW; URINE GLUCOSE (UA) 1+ (NEGATIVE); URINE KETONE NEGATIVE (NEGATIVE); URINE LEUK ESTERASE NEGATIVE (NEGATIVE); URINE NITRITE NEGATIVE (NEGATIVE); URINE PROTEIN 3+ (NEGATIVE); URINE RBC 31 /uL (0-23.9); URINE UROBILINOGEN 0.2 mg/dL (0.2-1.0); URINE WBC 4 /uL (0-25.8)
[2023-09-24] MEDS: POLYETHYLENE GLYCOL (HEALTHYLAX) 3350 17 GM PACKET PO SCH ×2 (09:57→21:29)
[2023-09-24] MEDS: amLODIPine BESYLATE 5 MG TABLET (FP) PO SCH (09:57)
[2023-09-24] MEDS: SODIUM ZIRCONIUM CYCLOSILICATE (LOKELMA) 5 GM PACKET PO SCH (12:04)
[2023-09-24 12:19] LABS: BASO % 0.4 % (0-2.0); EOS % 1.9 % (0-4.5); HEMATOCRIT 27.7 % (35.4-49); HEMOGLOBIN 9.3 GM/dL (11.7-16.9); LYMPH % 19.6 % (8-40); MCH 30.4 pg (25.7-33.7); MCHC 33.8 g/dl (32.0-35.9); MEAN PLT VOLUME 8.7 fl (7.5-11.1); MONO % 5.7 % (3.8-10.2); NEUT % 72.4 % (42.8-82.8); PLATELET COUNT 258 10^3/uL (134-434); RBC 3.07 M/mm3 (4.00-5.60); RDW 13.2 % (11.9-15.9); WHITE BLOOD COUNT 6.6 K/mm3 (4.0-10.0)
[2023-09-24 12:39] LABS: CALCIUM 8.3 mg/dL (8.5-10.1)
[2023-09-24 12:40] LABS: ALBUMIN 2.3 g/dl (3.4-5.0); BLOOD UREA NITROGEN 38.9 mg/dL (7-18)
[2023-09-24 12:43] LABS: CREATININE 1.6 mg/dL (0.55-1.3)
[2023-09-24 12:45] LABS: BILIRUBIN,TOTAL 0.2 mg/dL (0.2-1); TOT PROT 5.6 g/dl (6.4-8.2)
[2023-09-24] MEDS: SODIUM CHLORIDE 0.45% 1,000 ML IV SCH (16:30)
[2023-09-24] MEDS ORDERED: INSULIN (NOVOLOG) ASPART 100 UNITS/ML 10ML VIAL ONE (20:55)
[2023-09-25] MEDS: INSULIN ASPART SLIDING SCALE (NOVOLOG) 1 VIAL SQ SCH ×4 (06:46→21:45)
[2023-09-25] MEDS: INSULIN (LEVEMIR) 100 UNITS/ML UNITS SQ SCH ×2 (06:46→21:43)
[2023-09-25] MEDS: HEPARIN NA (PORCINE) 5,000 UNITS/ML 1ML VIAL SQ SCH ×2 (06:46→13:45)
[2023-09-25 08:27] LABS: BASO % 0.6 % (0-2.0); EOS % 0.9 % (0-4.5); HEMATOCRIT 26.8 % (35.4-49); HEMOGLOBIN 9.1 GM/dL (11.7-16.9); LYMPH % 17.1 % (8-40); MCH 30.8 pg (25.7-33.7); MCHC 34.1 g/dl (32.0-35.9); MEAN CELL VOLUME 90.3 fl (80-96); MEAN PLT VOLUME 9.3 fl (7.5-11.1); MONO % 5.5 % (3.8-10.2); NEUT % 75.9 % (42.8-82.8); PLATELET COUNT 265 10^3/uL (134-434); RBC 2.97 M/mm3 (4.00-5.60); RDW 13.2 % (11.9-15.9); WHITE BLOOD COUNT 7.3 K/mm3 (4.0-10.0)
[2023-09-25 08:36] LABS: POTASSIUM 5.7 mmol/L (3.5-5.1)
[2023-09-25 08:41] LABS: ALBUMIN 2.2 g/dl (3.4-5.0)
[2023-09-25 08:42] LABS: BLOOD UREA NITROGEN 37.5 mg/dL (7-18)
[2023-09-25 08:44] LABS: CREATININE 1.7 mg/dL (0.55-1.3)
[2023-09-25 08:46] LABS: BILIRUBIN,TOTAL 0.2 mg/dL (0.2-1); TOT PROT 5.4 g/dl (6.4-8.2)
[2023-09-25] MEDS ORDERED: SODIUM CHLORIDE 0.45% 1,000 ML IV SCH (09:15)
[2023-09-25] MEDS ORDERED: FUROSEMIDE 40 MG TABLET (FP) PO ONE (10:30)
[2023-09-25] MEDS: amLODIPine BESYLATE 5 MG TABLET (FP) PO SCH (10:40)
[2023-09-25] MEDS: POLYETHYLENE GLYCOL (HEALTHYLAX) 3350 17 GM PACKET PO SCH ×2 (10:40→21:45)
[2023-09-25] MEDS: SODIUM ZIRCONIUM CYCLOSILICATE (LOKELMA) 5 GM PACKET PO SCH (10:40)
[2023-09-25] MEDS: SODIUM CHLORIDE 0.45% 1,000 ML IV SCH (10:41)
[2023-09-25] MEDS ORDERED: BISACODYL 5 MG TABLET.DR (FP) PO ONE (16:00)
[2023-09-25] MEDS ORDERED: PEG 3350/NA SULF BICARB CL/KCL 4000 ML SOLN.RECON PO ONE (17:00)
[2023-09-25] MEDS ORDERED: ACETAMINOPHEN 325 MG TABLET (FP) PO PRN (17:31)
[2023-09-25 18:24] LABS: POTASSIUM 4.8 mmol/L (3.5-5.1)
[2023-09-25 18:26] LABS: BLOOD UREA NITROGEN 31.2 mg/dL (7-18)
[2023-09-25 18:29] LABS: CREATININE 1.7 mg/dL (0.55-1.3)
[2023-09-26] MEDS: SODIUM CHLORIDE 0.45% 1,000 ML IV SCH (06:44)
[2023-09-26] MEDS: INSULIN (LEVEMIR) 100 UNITS/ML UNITS SQ SCH ×2 (06:44→21:36)
[2023-09-26] MEDS: INSULIN ASPART SLIDING SCALE (NOVOLOG) 1 VIAL SQ SCH ×5 (06:44→21:37)
[2023-09-26 07:41] LABS: POTASSIUM 4.6 mmol/L (3.5-5.1)
[2023-09-26 07:44] LABS: CALCIUM 7.9 mg/dL (8.5-10.1)
[2023-09-26 07:45] LABS: BLOOD UREA NITROGEN 24.3 mg/dL (7-18)
[2023-09-26 07:48] LABS: CREATININE 1.3 mg/dL (0.55-1.3)
[2023-09-26 07:51] LABS: BASO % 0.6 % (0-2.0); EOS % 2.3 % (0-4.5); HEMATOCRIT 27.8 % (35.4-49); HEMOGLOBIN 9.6 GM/dL (11.7-16.9); LYMPH % 22.4 % (8-40); MCH 31.2 pg (25.7-33.7); MCHC 34.5 g/dl (32.0-35.9); MEAN CELL VOLUME 90.4 fl (80-96); MEAN PLT VOLUME 9.3 fl (7.5-11.1); MONO % 4.5 % (3.8-10.2); NEUT % 70.2 % (42.8-82.8); PLATELET COUNT 253 10^3/uL (134-434); RBC 3.07 M/mm3 (4.00-5.60); RDW 12.9 % (11.9-15.9)
[2023-09-26] MEDS: POLYETHYLENE GLYCOL (HEALTHYLAX) 3350 17 GM PACKET PO SCH ×2 (09:36→21:33)
[2023-09-26] MEDS: amLODIPine BESYLATE 5 MG TABLET (FP) PO SCH (09:36)
[2023-09-26] MEDS: SODIUM ZIRCONIUM CYCLOSILICATE (LOKELMA) 5 GM PACKET PO SCH (09:38)
[2023-09-26] MEDS ORDERED: SODIUM CHLORIDE 0.45% 1,000 ML IV SCH (15:17)
[2023-09-27 00:22] VITALS: RESP 20
[2023-09-27] MEDS: INSULIN (LEVEMIR) 100 UNITS/ML UNITS SQ SCH (06:27)
[2023-09-27] MEDS: HEPARIN NA (PORCINE) 5,000 UNITS/ML 1ML VIAL SQ SCH (06:27)
[2023-09-27] MEDS: INSULIN ASPART SLIDING SCALE (NOVOLOG) 1 VIAL SQ SCH ×2 (06:28→12:29)
[2023-09-27 08:16] LABS: POTASSIUM 4.5 mmol/L (3.5-5.1)
[2023-09-27 08:20] LABS: CALCIUM 8.4 mg/dL (8.5-10.1)
[2023-09-27 08:21] LABS: BLOOD UREA NITROGEN 27.9 mg/dL (7-18)
[2023-09-27 08:24] LABS: CREATININE 1.5 mg/dL (0.55-1.3)
[2023-09-27] MEDS: SODIUM ZIRCONIUM CYCLOSILICATE (LOKELMA) 5 GM PACKET PO SCH (10:21)
[2023-09-27] MEDS: amLODIPine BESYLATE 5 MG TABLET (FP) PO SCH (10:21)
[2023-09-27] MEDS: POLYETHYLENE GLYCOL (HEALTHYLAX) 3350 17 GM PACKET PO SCH (12:59)
[2023-09-27 13:03] VITALS: BP 160/85; PULSE 92; TEMP 98.1
[2023-09-29 17:06] LABS: FREE KAPPA,SERUM 61.9 mg/L (3.3-19.4)
== END 2023-09-27 13:37 | disposition home or self-care (01) | DRG 241 ==
LOC: JER 11:23 → JERBED 17:04 → J4W 20:02
PROVIDERS: ADMIT Internal Medicine; ATTEND Internal Medicine
PROC: 30233N1 Transfusion of Nonautologous Red Blood Cells into Peripheral Vein, Percutaneous Approach (ICD-10-PCS; 2023-09-22)
PROC: 0DB68ZX Excision of Stomach, Via Natural or Artificial Opening Endoscopic, Diagnostic (ICD-10-PCS; 2023-09-26)
PROC: 0DJD8ZZ Inspection of Lower Intestinal Tract, Via Natural or Artificial Opening Endoscopic (ICD-10-PCS; 2023-09-26)
PROC: 0DB98ZX Excision of Duodenum, Via Natural or Artificial Opening Endoscopic, Diagnostic (ICD-10-PCS; principal; 2023-09-26 11:00)
DX: K26.4 Chronic or unspecified duodenal ulcer with hemorrhage (principal); N17.9 Acute kidney failure, unspecified; E11.65 Type 2 diabetes mellitus with hyperglycemia; E87.1 Hypo-osmolality and hyponatremia; E87.5 Hyperkalemia; D64.9 Anemia, unspecified; I10 Essential (primary) hypertension; I12.9 Hypertensive chronic kidney disease with stage 1 through stage 4 chronic kidney disease, or unspecified chronic kidney disease; I95.1 Orthostatic hypotension; K59.00 Constipation, unspecified; N18.9 Chronic kidney disease, unspecified; R53.1 Weakness; R63.0 Anorexia; Z68.24 Body mass index [BMI] 24.0-24.9, adult; B96.81 Helicobacter pylori [H. pylori] as the cause of diseases classified elsewhere; K64.8 Other hemorrhoids; K29.50 Unspecified chronic gastritis without bleeding
CPT/HCPCS: 0241U-QW; 36415; 36430; 71045-TC-FY; 74176-TC; 76775-TC; 80048; 80053; 81003; 82088; 82272; 82436; 82533; 82607; 82728; 82962; 82977; 83036; 83540; 83550; 83735; 83880; 83883; 83930; 83935; 84100; 84133; 84155; 84165; 84244; 84300; 84443; 84484; 85025; 85045; 85610; 85730; 86850; 86900; 86901; 86922; 87086; 88305-TC; 90686; 93005; 93010; 97116-GP; 97161-GP; 99285-25; G0008; J1644; P9058; Q9963

== ENCOUNTER 2024-03-11 12:49 | Inpatient (IN) | payer OTHER ==
[2024-03-11] MEDS ORDERED: ACETAMINOPHEN 325 MG TABLET (FP) ONE (13:54)
[2024-03-11] MEDS: ACETAMINOPHEN 500 MG TABLET (FP) PO ONE (13:54)
[2024-03-11 14:37] LABS: BASO % 0.2 % (0-2.0); EOS % 0.8 % (0-4.5); HEMATOCRIT 23.2 % (35.4-49); HEMOGLOBIN 7.7 GM/dL (11.7-16.9); LYMPH % 4.2 % (8-40); MCH 31.1 pg (25.7-33.7); MCHC 33.4 g/dl (32.0-35.9); MEAN CELL VOLUME 92.9 fl (80-96); MEAN PLT VOLUME 8.6 fl (7.5-11.1); MONO % 7.5 % (3.8-10.2); NEUT % 87.3 % (42.8-82.8); PLATELET COUNT 188 10^3/uL (134-434); RBC 2.49 M/mm3 (4.00-5.60); RDW 13.9 % (11.9-15.9)
[2024-03-11 14:53] LABS: ACTIVATED PTT 33.5 SECONDS (25.2-36.5); INR 0.87 (0.83-1.09)
[2024-03-11 14:54] LABS: POTASSIUM 5.4 mmol/L (3.5-5.1)
[2024-03-11 14:56] LABS: BLOOD UREA NITROGEN 64.6 mg/dL (7-18); CALCIUM 7.7 mg/dL (8.5-10.1)
[2024-03-11 14:58] LABS: ALBUMIN 2.9 g/dl (3.4-5.0)
[2024-03-11 15:00] LABS: PHOSPHOROUS 3.7 mg/dL (2.5-4.9)
[2024-03-11 15:01] LABS: BILIRUBIN,TOTAL 0.3 mg/dL (0.2-1); TOT PROT 5.8 g/dl (6.4-8.2)
[2024-03-11] MEDS: SODIUM CHLORIDE 0.9% 500 ML INFUS.BAG IV ONE (17:30)
[2024-03-11 17:40] LABS: BASO % 0.4 % (0-2.0); EOS % 0.7 % (0-4.5); HEMATOCRIT 21.6 % (35.4-49); HEMOGLOBIN 7.2 GM/dL (11.7-16.9); LYMPH % 7.3 % (8-40); MCH 30.6 pg (25.7-33.7); MCHC 33.2 g/dl (32.0-35.9); MEAN CELL VOLUME 92.1 fl (80-96); MEAN PLT VOLUME 8.6 fl (7.5-11.1); MONO % 6.6 % (3.8-10.2); PLATELET COUNT 182 10^3/uL (134-434); RBC 2.34 M/mm3 (4.00-5.60); RDW 13.6 % (11.9-15.9); WHITE BLOOD COUNT 11.2 K/mm3 (4.0-10.0)
[2024-03-11] MEDS ORDERED: amLODIPine BESYLATE 10 MG TABLET (FP) ONE (17:41)
[2024-03-11] MEDS: amLODIPine BESYLATE 10 MG TABLET (FP) PO ONE (17:42)
[2024-03-12 03:52] VITALS: BMI 25.7
[2024-03-12] MEDS: ACETAMINOPHEN 325 MG TABLET (FP) PO PRN (04:56)
[2024-03-12] MEDS: INSULIN ASPART SLIDING SCALE (NOVOLOG) 1 VIAL SQ SCH (07:58)
[2024-03-12 08:13] LABS: BASO % 0.4 % (0-2.0); EOS % 1.5 % (0-4.5); HEMATOCRIT 21.2 % (35.4-49); HEMOGLOBIN 7.2 GM/dL (11.7-16.9); LYMPH % 8.2 % (8-40); MCH 31.2 pg (25.7-33.7); MCHC 33.7 g/dl (32.0-35.9); MEAN CELL VOLUME 92.4 fl (80-96); MEAN PLT VOLUME 8.9 fl (7.5-11.1); MONO % 5.4 % (3.8-10.2); NEUT % 84.5 % (42.8-82.8); PLATELET COUNT 190 10^3/uL (134-434); RDW 13.9 % (11.9-15.9); WHITE BLOOD COUNT 7.8 K/mm3 (4.0-10.0)
[2024-03-12 08:19] LABS: POTASSIUM 4.9 mmol/L (3.5-5.1)
[2024-03-12 08:21] LABS: CALCIUM 7.4 mg/dL (8.5-10.1)
[2024-03-12 08:22] LABS: ALBUMIN 2.4 g/dl (3.4-5.0); BLOOD UREA NITROGEN 55.4 mg/dL (7-18)
[2024-03-12 08:25] LABS: CREATININE 2.7 mg/dL (0.55-1.3)
[2024-03-12 08:27] LABS: BILIRUBIN,TOTAL 0.2 mg/dL (0.2-1); TOT PROT 5.1 g/dl (6.4-8.2)
[2024-03-12] MEDS: LABETALOL HCL 200 MG TABLET (FP) PO SCH (09:12)
[2024-03-12] MEDS: ESCITALOPRAM OXALATE 10 MG TABLET PO SCH (09:12)
[2024-03-12 19:38] LABS: EPI CELLS 6 /uL (0-25.1); HYALINE CASTS 0 /uL (0-3.1); URINE APPEARANCE CLEAR; URINE BACTERIA 24 /uL (0-1359); URINE BILIRUBIN NEGATIVE (NEGATIVE); URINE COLOR YELLOW; URINE GLUCOSE (UA) 3+ (NEGATIVE); URINE KETONE NEGATIVE (NEGATIVE); URINE LEUK ESTERASE NEGATIVE (NEGATIVE); URINE NITRITE NEGATIVE (NEGATIVE); URINE PROTEIN 3+ (NEGATIVE); URINE RBC 43 /uL (0-23.9); URINE UROBILINOGEN 0.2 mg/dL (0.2-1.0); URINE WBC 6 /uL (0-25.8)
[2024-03-12] MEDS: INSULIN (LEVEMIR) 100 UNITS/ML UNITS SQ SCH (21:47)
[2024-03-13] MEDS ORDERED: INSULIN ASPART SLIDING SCALE (NOVOLOG) 1 VIAL SQ ONE (06:57)
[2024-03-13 08:49] LABS: BASO % 0.3 % (0-2.0); EOS % 1.1 % (0-4.5); HEMATOCRIT 21.4 % (35.4-49); HEMOGLOBIN 7.1 GM/dL (11.7-16.9); MCH 30.7 pg (25.7-33.7); MCHC 33.4 g/dl (32.0-35.9); MEAN CELL VOLUME 92.2 fl (80-96); MEAN PLT VOLUME 8.9 fl (7.5-11.1); MONO % 6.1 % (3.8-10.2); NEUT % 78.5 % (42.8-82.8); PLATELET COUNT 197 10^3/uL (134-434); RBC 2.32 M/mm3 (4.00-5.60); RDW 14.1 % (11.9-15.9); WHITE BLOOD COUNT 6.7 K/mm3 (4.0-10.0)
[2024-03-13 09:13] LABS: POTASSIUM 5.5 mmol/L (3.5-5.1)
[2024-03-13 09:21] LABS: BLOOD UREA NITROGEN 56.8 mg/dL (7-18); CALCIUM 7.3 mg/dL (8.5-10.1)
[2024-03-13 09:22] LABS: ALBUMIN 2.3 g/dl (3.4-5.0)
[2024-03-13 09:25] LABS: BILIRUBIN,TOTAL 0.2 mg/dL (0.2-1); CREATININE 2.7 mg/dL (0.55-1.3)
[2024-03-13] MEDS: SODIUM CHLORIDE 0.45% 1,000 ML IV SCH (14:41)
[2024-03-13] MEDS: SODIUM ZIRCONIUM CYCLOSILICATE (LOKELMA) 5 GM PACKET PO SCH (14:41)
[2024-03-13] MEDS: METOPROLOL TARTRATE 5 MG/5 ML VIAL IVPUSH ONE (15:25)
[2024-03-13] MEDS: amLODIPine BESYLATE 2.5 MG TABLET (FP) PO ONE ×2 (16:15→18:32)
[2024-03-13] MEDS: hydrALAZINE HCL 20 MG/ML VIAL IVPUSH ONE (18:32)
[2024-03-13] MEDS: ALPRAZolam 0.25 MG TABLET PO PRN (21:44)
[2024-03-14 08:16] LABS: POTASSIUM 4.7 mmol/L (3.5-5.1)
[2024-03-14 08:22] LABS: ALBUMIN 2.2 g/dl (3.4-5.0); BLOOD UREA NITROGEN 56.8 mg/dL (7-18); CALCIUM 7.6 mg/dL (8.5-10.1)
[2024-03-14 08:26] LABS: CREATININE 2.7 mg/dL (0.55-1.3)
[2024-03-14 08:27] LABS: BILIRUBIN,TOTAL 0.4 mg/dL (0.2-1)
[2024-03-14 10:19] LABS: HEMATOCRIT 24.3 % (35.4-49); HEMOGLOBIN 8.2 GM/dL (11.7-16.9); MCH 31.1 pg (25.7-33.7); MCHC 33.8 g/dl (32.0-35.9); MEAN CELL VOLUME 92.1 fl (80-96); MEAN PLT VOLUME 8.8 fl (7.5-11.1); PLATELET COUNT 208 10^3/uL (134-434); RBC 2.64 M/mm3 (4.00-5.60); RDW 13.9 % (11.9-15.9)
[2024-03-14] MEDS: amLODIPine BESYLATE 5 MG TABLET (FP) PO ONE (13:07)
[2024-03-15 08:02] LABS: HEMATOCRIT 23.4 % (35.4-49); HEMOGLOBIN 8.1 GM/dL (11.7-16.9); MCH 31.7 pg (25.7-33.7); MCHC 34.5 g/dl (32.0-35.9); MEAN CELL VOLUME 91.9 fl (80-96); MEAN PLT VOLUME 8.6 fl (7.5-11.1); PLATELET COUNT 204 10^3/uL (134-434); RBC 2.55 M/mm3 (4.00-5.60); RDW 13.8 % (11.9-15.9); WHITE BLOOD COUNT 6.1 K/mm3 (4.0-10.0)
[2024-03-15 08:12] LABS: BLOOD UREA NITROGEN 65.9 mg/dL (7-18); CALCIUM 7.9 mg/dL (8.5-10.1)
[2024-03-15 08:18] LABS: CREATININE 2.9 mg/dL (0.55-1.3)
[2024-03-15 09:22] VITALS: BP 137/68; PULSE 80; RESP 18; TEMP 98.2
[2024-03-15] MEDS ORDERED: REGADENOSON 0.4 MG/5 ML PRE-FILLED SYRINGE IVPUSH ONE (09:27)
[2024-03-15] MEDS: REGADENOSON 0.4 MG/5 ML PRE-FILLED SYRINGE IVPUSH ONE (11:47)
[2024-03-15] MEDS: amLODIPine BESYLATE 5 MG TABLET (FP) PO SCH (12:59)
== END 2024-03-15 17:47 | disposition home or self-care (01) | DRG 199 ==
LOC: JER 12:49 → JERBED 17:17 → J4W 03-12 03:43 → OBSVTOIN 03-12 10:53
PROVIDERS: ADMIT Internal Medicine; ATTEND Internal Medicine
DX: I16.0 Hypertensive urgency (principal); I25.10 Atherosclerotic heart disease of native coronary artery without angina pectoris; I12.9 Hypertensive chronic kidney disease with stage 1 through stage 4 chronic kidney disease, or unspecified chronic kidney disease; E11.22 Type 2 diabetes mellitus with diabetic chronic kidney disease; N18.9 Chronic kidney disease, unspecified; E87.5 Hyperkalemia; D64.9 Anemia, unspecified; R00.2 Palpitations; R94.31 Abnormal electrocardiogram [ECG] [EKG]; R80.9 Proteinuria, unspecified; Z95.5 Presence of coronary angioplasty implant and graft
CPT/HCPCS: 36415; 36430; 70450-TC; 71046-TC-FY; 76775-TC; 78452-TC; 80048; 80053; 81003; 82272; 82962; 83036; 83735; 84100; 84484; 85025; 85027; 85610; 85730; 86850; 86900; 86901; 86922; 93005; 93010; 93017; 93306-TC; 99285-25; A9502; G0378; J2785; P9038; P9058

== ENCOUNTER 2024-07-04 08:08 | Inpatient (IN) | payer OTHER ==
[2024-07-04 09:13] LABS: BASO % 0.5 % (0-2.0); EOS % 3.7 % (0-4.5); HEMATOCRIT 22.5 % (35.4-49); HEMOGLOBIN 7.5 GM/dL (11.7-16.9); LYMPH % 13.9 % (8-40); MCH 30.9 pg (25.7-33.7); MCHC 33.4 g/dl (32.0-35.9); MEAN CELL VOLUME 92.6 fl (80-96); MEAN PLT VOLUME 7.8 fl (7.5-11.1); MONO % 6.5 % (3.8-10.2); NEUT % 75.4 % (42.8-82.8); PLATELET COUNT 295 10^3/uL (134-434); RBC 2.43 M/mm3 (4.00-5.60); WHITE BLOOD COUNT 7.7 K/mm3 (4.0-10.0)
[2024-07-04 09:29] LABS: POTASSIUM 5.5 mmol/L (3.5-5.1)
[2024-07-04 09:30] LABS: CALCIUM 8.1 mg/dL (8.5-10.1)
[2024-07-04 09:32] LABS: ALBUMIN 2.3 g/dl (3.4-5.0); BLOOD UREA NITROGEN 54.5 mg/dL (7-18); MAGNESIUM 1.9 mg/dL (1.8-2.4)
[2024-07-04 09:34] LABS: CREATININE 4.2 mg/dL (0.55-1.3)
[2024-07-04 09:36] LABS: BILIRUBIN,TOTAL 0.3 mg/dL (0.2-1); TOT PROT 5.7 g/dl (6.4-8.2)
[2024-07-04] MEDS ORDERED: FUROSEMIDE 40 MG/4 ML INJECTABLE VIAL ONE ×2 (09:53→13:42)
[2024-07-04] MEDS: FUROSEMIDE 40 MG/4 ML INJECTABLE VIAL IVPUSH ONE ×2 (10:00→14:10)
[2024-07-04 12:30] LABS: HIV INTERPRETATION NEGATIVE (NEGATIVE)
[2024-07-04] MEDS ORDERED: SODIUM ZIRCONIUM CYCLOSILICATE (LOKELMA) 10 GM PACKET ONE (14:15)
[2024-07-04] MEDS: SODIUM ZIRCONIUM CYCLOSILICATE (LOKELMA) 5 GM PACKET PO SCH (14:19)
[2024-07-04] MEDS ORDERED: INSULIN ASPART SLIDING SCALE (NOVOLOG) 1 VIAL SQ ONE (17:38)
[2024-07-04] MEDS: INSULIN ASPART SLIDING SCALE (NOVOLOG) 1 VIAL SQ SCH (17:39)
[2024-07-04] MEDS: amLODIPine BESYLATE 5 MG TABLET (FP) PO ONE (18:46)
[2024-07-04] MEDS: POLYETHYLENE GLYCOL (HEALTHYLAX) 3350 17 GM PACKET PO SCH (22:57)
[2024-07-04] MEDS: LABETALOL HCL 200 MG TABLET (FP) PO SCH (22:58)
[2024-07-04] MEDS: HEPARIN NA (PORCINE) 5,000 UNITS/ML 1ML VIAL SQ SCH (22:58)
[2024-07-04] MEDS: INSULIN (LEVEMIR) 100 UNITS/ML UNITS SQ SCH (22:58)
[2024-07-05 02:34] VITALS: BMI 23.8
[2024-07-05 07:37] LABS: BASO % 0.6 % (0-2.0); EOS % 3.4 % (0-4.5); HEMATOCRIT 20.2 % (35.4-49); LYMPH % 11.2 % (8-40); MCH 30.8 pg (25.7-33.7); MEAN CELL VOLUME 93.2 fl (80-96); MEAN PLT VOLUME 7.9 fl (7.5-11.1); MONO % 5.9 % (3.8-10.2); NEUT % 78.9 % (42.8-82.8); PLATELET COUNT 283 10^3/uL (134-434); RBC 2.16 M/mm3 (4.00-5.60); RDW 14.4 % (11.9-15.9); WHITE BLOOD COUNT 7.3 K/mm3 (4.0-10.0)
[2024-07-05 07:48] LABS: HEMOGLOBIN 6.7 GM/dL (11.7-16.9)
[2024-07-05 08:09] LABS: POTASSIUM 5.5 mmol/L (3.5-5.1)
[2024-07-05 08:13] LABS: BLOOD UREA NITROGEN 57.3 mg/dL (7-18); CALCIUM 7.7 mg/dL (8.5-10.1)
[2024-07-05 08:17] LABS: BILIRUBIN,TOTAL 0.2 mg/dL (0.2-1); CREATININE 4.4 mg/dL (0.55-1.3); TOT PROT 4.9 g/dl (6.4-8.2)
[2024-07-05] MEDS ORDERED: amLODIPine BESYLATE 5 MG TABLET (FP) PO SCH (10:00)
[2024-07-05] MEDS: amLODIPine BESYLATE 5 MG TABLET (FP) PO SCH (10:59)
[2024-07-05] MEDS: SODIUM ZIRCONIUM CYCLOSILICATE (LOKELMA) 5 GM PACKET PO SCH (10:59)
[2024-07-05] MEDS: FLU VACCINE (FLULAVAL) PF 45 MCG/0.5 ML SYRINGE 2024-2025 IM ONE (17:18)
[2024-07-06 08:27] LABS: CHLORIDE 112 mmol/L (98-107); SODIUM 139 mmol/L (136-145)
[2024-07-06 08:31] LABS: BLOOD UREA NITROGEN 61.7 mg/dL (7-18); CO2 21 mmol/L (21-32); GLUCOSE,RANDOM 131 mg/dL (74-106)
[2024-07-06 08:32] LABS: SGPT/ALT 16 U/L (13-61)
[2024-07-06 08:33] LABS: CREATININE 4.6 mg/dL (0.55-1.3); SGOT/AST 14 U/L (15-37)
[2024-07-06 08:34] LABS: BILIRUBIN,TOTAL 0.3 mg/dL (0.2-1)
[2024-07-06 08:37] LABS: ALK PHOS 139 U/L (45-117)
[2024-07-06 08:56] LABS: ANION GAP 7 mmol/L (4-13); CALCIUM 6.9 mg/dL (8.5-10.1); POTASSIUM 6.1 mmol/L (3.5-5.1)
[2024-07-06 09:02] LABS: BASO % 0.6 % (0-2.0); EOS % 4.2 % (0-4.5); HEMOGLOBIN 7.9 GM/dL (11.7-16.9); MCH 31.5 pg (25.7-33.7); MCHC 34.4 g/dl (32.0-35.9); MEAN CELL VOLUME 91.6 fl (80-96); MEAN PLT VOLUME 7.9 fl (7.5-11.1); MONO % 6.9 % (3.8-10.2); NEUT % 77.3 % (42.8-82.8); PLATELET COUNT 265 10^3/uL (134-434); RBC 2.51 M/mm3 (4.00-5.60); RDW 14.8 % (11.9-15.9); WHITE BLOOD COUNT 8.1 K/mm3 (4.0-10.0)
[2024-07-06] MEDS ORDERED: ALBUTEROL SO4 0.083% IH SOL 2.5 MG/3 ML VIAL.NEB. NEB PRN (11:16)
[2024-07-06] MEDS: CALCIUM GLUCONATE 10% - 1,000 MG/10 ML VIAL IVPB ONE (12:32)
[2024-07-06] MEDS: SODIUM BICARBONATE 8.4% 50 MEQ/50 ML DISP.SYRIN IVPUSH ONE (12:35)
[2024-07-06] MEDS: INSULIN REGULAR HUMAN 100 UNITS/ML *VIAL SQ ONE (12:37)
[2024-07-06] MEDS: DEXTROSE 50%-WATER 25 GM/50 ML DISP.SYRIN IVPUSH ONE (12:37)
[2024-07-06] MEDS: SODIUM ZIRCONIUM CYCLOSILICATE (LOKELMA) 5 GM PACKET PO SCH (12:50)
[2024-07-06] MEDS ORDERED: DEXTROSE 50%-WATER 25 GM/50 ML DISP.SYRIN ONE (14:52)
[2024-07-06] MEDS: DEXTROSE 50%-WATER 25 GM/50 ML DISP.SYRIN IVPUSH PRN (15:02)
[2024-07-06] MEDS: SODIUM CHLORIDE 0.45% 1,000 ML IV SCH (15:41)
[2024-07-07 07:31] LABS: CHLORIDE 107 mmol/L (98-107); SODIUM 136 mmol/L (136-145)
[2024-07-07 07:34] LABS: BLOOD UREA NITROGEN 57.2 mg/dL (7-18)
[2024-07-07 07:35] LABS: ALBUMIN 1.8 g/dl (3.4-5.0); CO2 23 mmol/L (21-32); GLUCOSE,RANDOM 181 mg/dL (74-106); MAGNESIUM 1.6 mg/dL (1.8-2.4)
[2024-07-07 07:38] LABS: CREATININE 4.5 mg/dL (0.55-1.3); SGOT/AST 12 U/L (15-37); SGPT/ALT 15 U/L (13-61)
[2024-07-07 07:39] LABS: BILIRUBIN,TOTAL 0.3 mg/dL (0.2-1); TOT PROT 4.7 g/dl (6.4-8.2)
[2024-07-07 07:40] LABS: ALK PHOS 143 U/L (45-117)
[2024-07-07 07:50] LABS: BASO % 0.6 % (0-2.0); EOS % 5.5 % (0-4.5); HEMATOCRIT 21.9 % (35.4-49); HEMOGLOBIN 7.5 GM/dL (11.7-16.9); MCH 31.3 pg (25.7-33.7); MCHC 34.2 g/dl (32.0-35.9); MEAN CELL VOLUME 91.5 fl (80-96); MEAN PLT VOLUME 7.8 fl (7.5-11.1); MONO % 7.6 % (3.8-10.2); NEUT % 74.3 % (42.8-82.8); PLATELET COUNT 257 10^3/uL (134-434); RBC 2.39 M/mm3 (4.00-5.60); RDW 14.6 % (11.9-15.9); WHITE BLOOD COUNT 7.9 K/mm3 (4.0-10.0)
[2024-07-07 08:04] LABS: ANION GAP 6 mmol/L (4-13); CALCIUM 6.9 mg/dL (8.5-10.1); POTASSIUM 6.1 mmol/L (3.5-5.1)
[2024-07-08 07:32] LABS: BASO % 0.4 % (0-2.0); EOS % 5.9 % (0-4.5); HEMATOCRIT 23.9 % (35.4-49); HEMOGLOBIN 8.1 GM/dL (11.7-16.9); LYMPH % 13.2 % (8-40); MEAN PLT VOLUME 7.7 fl (7.5-11.1); MONO % 7.2 % (3.8-10.2); NEUT % 73.3 % (42.8-82.8); PLATELET COUNT 273 10^3/uL (134-434); RBC 2.62 M/mm3 (4.00-5.60); RDW 14.3 % (11.9-15.9); WHITE BLOOD COUNT 7.8 K/mm3 (4.0-10.0)
[2024-07-08 07:34] LABS: POTASSIUM 5.6 mmol/L (3.5-5.1)
[2024-07-08 07:37] LABS: BLOOD UREA NITROGEN 62.6 mg/dL (7-18); CALCIUM 7.1 mg/dL (8.5-10.1)
[2024-07-08 07:40] LABS: CREATININE 4.7 mg/dL (0.55-1.3)
[2024-07-08 07:42] LABS: BILIRUBIN,TOTAL 0.3 mg/dL (0.2-1); TOT PROT 5.1 g/dl (6.4-8.2)
[2024-07-08] MEDS: MELATONIN 5 MG TABLETS PO PRN (22:40)
[2024-07-09 08:35] LABS: BASO % 0.5 % (0-2.0); EOS % 4.6 % (0-4.5); HEMATOCRIT 22.4 % (35.4-49); HEMOGLOBIN 7.5 GM/dL (11.7-16.9); LYMPH % 12.4 % (8-40); MCH 30.3 pg (25.7-33.7); MCHC 33.4 g/dl (32.0-35.9); MEAN CELL VOLUME 90.7 fl (80-96); MEAN PLT VOLUME 7.9 fl (7.5-11.1); NEUT % 75.5 % (42.8-82.8); PLATELET COUNT 279 10^3/uL (134-434); RBC 2.47 M/mm3 (4.00-5.60); RDW 14.5 % (11.9-15.9)
[2024-07-09 08:55] LABS: POTASSIUM 5.7 mmol/L (3.5-5.1)
[2024-07-09 08:59] LABS: ALBUMIN 1.9 g/dl (3.4-5.0); BLOOD UREA NITROGEN 71.6 mg/dL (7-18); CALCIUM 7.5 mg/dL (8.5-10.1)
[2024-07-09 09:04] LABS: BILIRUBIN,TOTAL 0.3 mg/dL (0.2-1); TOT PROT 4.8 g/dl (6.4-8.2)
[2024-07-09 10:47] LABS: PHOSPHOROUS 6.3 mg/dL (2.5-4.9)
[2024-07-09 11:04] LABS: INR 1.06 (0.83-1.09)
[2024-07-09 11:07] LABS: ACTIVATED PTT 35.9 SECONDS (25.2-36.5)
[2024-07-10] MEDS: DEXTROSE 50%-WATER 25 GM/50 ML DISP.SYRIN IVPUSH PRN (02:21)
[2024-07-10 08:36] LABS: PROTHROMBIN TIME (PATIENT) 11.5 SEC (9.7-13.0)
[2024-07-10] MEDS ORDERED: MIDAZOLAM HCL 2 MG/2 ML SINGLE DOSE VIAL ONE (11:06)
[2024-07-10] MEDS ORDERED: FENTANYL CITRATE/PF 50 MCG/ML VIAL ONE (11:06)
[2024-07-10] MEDS: SODIUM CHLORIDE 500 ML IV ONE (11:15)
[2024-07-10] MEDS: FENTANYL CITRATE/PF 50 MCG/ML VIAL IVPUSH ONE (11:40)
[2024-07-10] MEDS: MIDAZOLAM HCL 2 MG/2 ML SINGLE DOSE VIAL IVPUSH ONE (11:40)
[2024-07-11] MEDS: ACETAMINOPHEN 325 MG TABLET (FP) PO PRN (01:26)
[2024-07-11] MEDS: DEXTROSE 5%-WATER - 1,000 ML IV SCH (03:47)
[2024-07-11 08:27] LABS: HEMATOCRIT 21.9 % (35.4-49); HEMOGLOBIN 7.5 GM/dL (11.7-16.9); MCH 30.8 pg (25.7-33.7); MCHC 34.1 g/dl (32.0-35.9); MEAN CELL VOLUME 90.3 fl (80-96); MEAN PLT VOLUME 7.8 fl (7.5-11.1); PLATELET COUNT 268 10^3/uL (134-434); RBC 2.42 M/mm3 (4.00-5.60); RDW 14.3 % (11.9-15.9); WHITE BLOOD COUNT 7.6 K/mm3 (4.0-10.0)
[2024-07-11 08:47] LABS: POTASSIUM 5.2 mmol/L (3.5-5.1)
[2024-07-11 08:54] LABS: ALBUMIN 1.8 g/dl (3.4-5.0)
[2024-07-11 08:56] LABS: BLOOD UREA NITROGEN 69.5 mg/dL (7-18)
[2024-07-11 08:58] LABS: CREATININE 5.1 mg/dL (0.55-1.3)
[2024-07-11 08:59] LABS: BILIRUBIN,TOTAL 0.2 mg/dL (0.2-1); TOT PROT 4.7 g/dl (6.4-8.2)
[2024-07-11 09:29] LABS: CALCIUM 7.1 mg/dL (8.5-10.1)
[2024-07-12 07:44] LABS: HEMATOCRIT 22.6 % (35.4-49); HEMOGLOBIN 7.6 GM/dL (11.7-16.9); MCH 30.7 pg (25.7-33.7); MCHC 33.7 g/dl (32.0-35.9); MEAN CELL VOLUME 91.1 fl (80-96); MEAN PLT VOLUME 7.8 fl (7.5-11.1); PLATELET COUNT 284 10^3/uL (134-434); RBC 2.48 M/mm3 (4.00-5.60); WHITE BLOOD COUNT 7.5 K/mm3 (4.0-10.0)
[2024-07-12 08:07] LABS: POTASSIUM 4.7 mmol/L (3.5-5.1)
[2024-07-12 08:08] LABS: CALCIUM 7.3 mg/dL (8.5-10.1)
[2024-07-12 08:09] LABS: BLOOD UREA NITROGEN 71.8 mg/dL (7-18)
[2024-07-12] MEDS: EPOETIN ALFA-EPBX 10,000 UNIT/ML VIAL SQ ONE (10:32)
[2024-07-12 21:07] LABS: ANTIGLOMERULAR BASEMENT MEN.AB <0.2 units (0.0-0.9); C-ANCA <1:20 titer (Neg:<1:20)
[2024-07-13 07:15] LABS: POTASSIUM 4.7 mmol/L (3.5-5.1)
[2024-07-13 07:19] LABS: BLOOD UREA NITROGEN 78.5 mg/dL (7-18)
[2024-07-13 07:20] LABS: CALCIUM 7.3 mg/dL (8.5-10.1)
[2024-07-13 07:23] LABS: CREATININE 5.1 mg/dL (0.55-1.3)
[2024-07-13] MEDS: FUROSEMIDE 40 MG/4 ML INJECTABLE VIAL IVPUSH ONE (17:20)
[2024-07-14 09:13] LABS: BASO % 0.4 % (0-2.0); EOS % 3.8 % (0-4.5); HEMATOCRIT 23.8 % (35.4-49); HEMOGLOBIN 7.9 GM/dL (11.7-16.9); LYMPH % 14.3 % (8-40); MCH 30.4 pg (25.7-33.7); MCHC 33.3 g/dl (32.0-35.9); MEAN CELL VOLUME 91.4 fl (80-96); MONO % 6.9 % (3.8-10.2); NEUT % 74.6 % (42.8-82.8); PLATELET COUNT 295 10^3/uL (134-434); RBC 2.61 M/mm3 (4.00-5.60); WHITE BLOOD COUNT 8.2 K/mm3 (4.0-10.0)
[2024-07-14 09:26] LABS: POTASSIUM 4.7 mmol/L (3.5-5.1)
[2024-07-14 09:40] LABS: CALCIUM 7.4 mg/dL (8.5-10.1)
[2024-07-14 09:41] LABS: BILIRUBIN,TOTAL 0.2 mg/dL (0.2-1); TOT PROT 5.3 g/dl (6.4-8.2)
[2024-07-14 09:44] LABS: CREATININE 5.3 mg/dL (0.55-1.3); PHOSPHOROUS 6.6 mg/dL (2.5-4.9)
[2024-07-14] MEDS: EPOETIN ALFA 10,000 UNIT/1 ML VIAL SQ ONE (15:47)
[2024-07-14] MEDS: CALCIUM ACETATE 667 MG CAPSULE (FP) PO SCH (17:23)
[2024-07-15 09:11] LABS: POTASSIUM 4.7 mmol/L (3.5-5.1)
[2024-07-15 09:13] LABS: ALBUMIN 1.9 g/dl (3.4-5.0); BLOOD UREA NITROGEN 71.7 mg/dL (7-18); CALCIUM 7.4 mg/dL (8.5-10.1)
[2024-07-15 09:17] LABS: CREATININE 5.2 mg/dL (0.55-1.3)
[2024-07-15 09:18] LABS: BILIRUBIN,TOTAL 0.3 mg/dL (0.2-1)
[2024-07-15] MEDS: SODIUM ZIRCONIUM CYCLOSILICATE (LOKELMA) 5 GM PACKET PO SCH (09:58)
[2024-07-15] MEDS: FUROSEMIDE 40 MG/4 ML INJECTABLE VIAL IVPUSH ONE (12:15)
[2024-07-15] MEDS: IRON SUCROSE INJECTION 100 MG in SODIUM CHLORIDE 95 ML IVPB ONE (13:45)
[2024-07-16] MEDS: FERROUS GLUCONATE 324 MG TAB (FP) PO SCH (09:47)
[2024-07-16] MEDS: EPOETIN ALFA-EPBX 10,000 UNIT/ML VIAL SQ ONE (17:55)
[2024-07-16] MEDS: IRON SUCROSE INJECTION 100 MG in SODIUM CHLORIDE 95 ML IVPB ONE (18:22)
[2024-07-17] MEDS ORDERED: DEXTROSE 50%-WATER 25 GM/50 ML DISP.SYRIN IVPUSH PRN (13:45)
[2024-07-17] MEDS: INSULIN ASPART SLIDING SCALE (NOVOLOG) 1 VIAL SQ SCH (17:23)
[2024-07-17] MEDS: CALCIUM ACETATE 667 MG CAPSULE (FP) PO SCH (17:26)
[2024-07-17] MEDS ORDERED: INSULIN ASPART SLIDING SCALE (NOVOLOG) 1 VIAL SQ ONE (17:31)
[2024-07-17] MEDS: POLYETHYLENE GLYCOL (HEALTHYLAX) 3350 17 GM PACKET PO SCH (21:15)
[2024-07-17] MEDS: LABETALOL HCL 200 MG TABLET (FP) PO SCH (21:15)
[2024-07-17] MEDS: MELATONIN 5 MG TABLETS PO PRN (22:39)
[2024-07-17] MEDS: ACETAMINOPHEN 325 MG TABLET (FP) PO PRN (22:39)
[2024-07-18] MEDS: FERROUS GLUCONATE 324 MG TAB (FP) PO SCH (09:05)
[2024-07-18] MEDS: amLODIPine BESYLATE 5 MG TABLET (FP) PO SCH (09:06)
[2024-07-18] MEDS: SODIUM ZIRCONIUM CYCLOSILICATE (LOKELMA) 5 GM PACKET PO SCH (09:06)
[2024-07-18] MEDS ORDERED: HEPARIN NA (PORCINE) 5,000 UNITS/ML 1ML VIAL ONE (15:54)
[2024-07-18] MEDS ORDERED: LIDOCAINE HCL 1%, 10 MG/ML (20ML VIAL) ONE (15:54)
[2024-07-18 17:25] LABS: INR 0.97 (0.83-1.09); PROTHROMBIN TIME (PATIENT) 11.2 SEC (9.7-13.0)
[2024-07-18 17:28] LABS: ACTIVATED PTT 38.3 SECONDS (25.2-36.5)
[2024-07-18 17:35] LABS: HEMATOCRIT 24.4 % (35.4-49); HEMOGLOBIN 7.9 GM/dL (11.7-16.9); MCH 30.2 pg (25.7-33.7); MCHC 32.5 g/dl (32.0-35.9); MEAN CELL VOLUME 92.9 fl (80-96); MEAN PLT VOLUME 7.3 fl (7.5-11.1); PLATELET COUNT 304 10^3/uL (134-434); RBC 2.63 M/mm3 (4.00-5.60); RDW 14.5 % (11.9-15.9); WHITE BLOOD COUNT 6.7 K/mm3 (4.0-10.0)
[2024-07-18 17:45] LABS: ALBUMIN 2.2 g/dl (3.4-5.0); CALCIUM 8.2 mg/dL (8.5-10.1)
[2024-07-18 17:46] LABS: BLOOD UREA NITROGEN 82.1 mg/dL (7-18)
[2024-07-18 17:49] LABS: CREATININE 5.8 mg/dL (0.55-1.3)
[2024-07-18 17:50] LABS: BILIRUBIN,TOTAL 0.3 mg/dL (0.2-1); TOT PROT 5.8 g/dl (6.4-8.2)
[2024-07-19] MEDS ORDERED: SODIUM CHLORIDE 250 ML IV PRN ×2 (08:13→15:23)
[2024-07-20 09:31] LABS: POTASSIUM 4.4 mmol/L (3.5-5.1)
[2024-07-20 09:33] LABS: BLOOD UREA NITROGEN 60.5 mg/dL (7-18); CALCIUM 7.8 mg/dL (8.5-10.1)
[2024-07-20 09:37] LABS: CREATININE 4.6 mg/dL (0.55-1.3)
[2024-07-20 09:38] LABS: BILIRUBIN,TOTAL 0.4 mg/dL (0.2-1); TOT PROT 5.3 g/dl (6.4-8.2)
[2024-07-20 11:02] LABS: BASO % 0.5 % (0-2.0); EOS % 4.3 % (0-4.5); HEMATOCRIT 22.3 % (35.4-49); HEMOGLOBIN 7.3 GM/dL (11.7-16.9); LYMPH % 12.9 % (8-40); MCH 30.5 pg (25.7-33.7); MCHC 32.9 g/dl (32.0-35.9); MEAN CELL VOLUME 92.7 fl (80-96); MEAN PLT VOLUME 7.6 fl (7.5-11.1); MONO % 10.2 % (3.8-10.2); NEUT % 72.1 % (42.8-82.8); PLATELET COUNT 300 10^3/uL (134-434); RBC 2.41 M/mm3 (4.00-5.60); RDW 14.2 % (11.9-15.9); WHITE BLOOD COUNT 6.9 K/mm3 (4.0-10.0)
[2024-07-20] MEDS: EPOETIN ALFA-EPBX 10,000 UNIT/ML VIAL SQ ONE (15:00)
[2024-07-20] MEDS ORDERED: LIDOCAINE HCL 1%, 10 MG/ML (20ML VIAL) ONE (16:16)
[2024-07-20] MEDS ORDERED: HEPARIN NA (PORCINE) 5,000 UNITS/ML 1ML VIAL ONE (16:17)
[2024-07-20] MEDS ORDERED: MIDAZOLAM HCL 2 MG/2 ML SINGLE DOSE VIAL ONE (18:21)
[2024-07-20] MEDS ORDERED: CLINDAMYCIN PHOSPHATE 600 MG/4 ML VIAL ONE (18:23)
[2024-07-20] MEDS: CLINDAMYCIN 900 MG PREMIX BAG IVPB ONE (18:35)
[2024-07-20] MEDS ORDERED: ONDANSETRON 4 MG/2 ML VIAL IVPUSH PRN (19:01)
[2024-07-20] MEDS: LIDOCAINE HCL 1%, 10 MG/ML (20ML VIAL) INF ONE (19:07)
[2024-07-20] MEDS ORDERED: DEXTROSE 50%-WATER 25 GM/50 ML DISP.SYRIN IVPUSH PRN (19:08)
[2024-07-20] MEDS: POLYETHYLENE GLYCOL (HEALTHYLAX) 3350 17 GM PACKET PO SCH (21:29)
[2024-07-20] MEDS: LABETALOL HCL 200 MG TABLET (FP) PO SCH (21:29)
[2024-07-20] MEDS: INSULIN ASPART SLIDING SCALE (NOVOLOG) 1 VIAL SQ SCH (21:29)
[2024-07-21] MEDS: ACETAMINOPHEN 325 MG TABLET (FP) PO PRN (00:08)
[2024-07-21] MEDS: MELATONIN 5 MG TABLETS PO PRN (00:08)
[2024-07-21] MEDS: amLODIPine BESYLATE 5 MG TABLET (FP) PO SCH (09:03)
[2024-07-21] MEDS: CALCIUM ACETATE 667 MG CAPSULE (FP) PO SCH (09:03)
[2024-07-21] MEDS: SODIUM ZIRCONIUM CYCLOSILICATE (LOKELMA) 5 GM PACKET PO SCH (09:04)
[2024-07-21] MEDS: FERROUS GLUCONATE 324 MG TAB (FP) PO SCH (09:04)
[2024-07-21] MEDS: ALPRAZolam 0.25 MG TABLET PO PRN (11:43)
[2024-07-22] MEDS ORDERED: SODIUM CHLORIDE 250 ML IV PRN (18:49)
[2024-07-23 08:35] LABS: POTASSIUM 5.1 mmol/L (3.5-5.1)
[2024-07-23 08:39] LABS: BASO % 0.5 % (0-2.0); EOS % 6.7 % (0-4.5); HEMATOCRIT 24.2 % (35.4-49); HEMOGLOBIN 7.7 GM/dL (11.7-16.9); LYMPH % 12.8 % (8-40); MCH 30.1 pg (25.7-33.7); MEAN CELL VOLUME 93.8 fl (80-96); MEAN PLT VOLUME 7.5 fl (7.5-11.1); MONO % 7.4 % (3.8-10.2); NEUT % 72.6 % (42.8-82.8); PLATELET COUNT 319 10^3/uL (134-434); RBC 2.58 M/mm3 (4.00-5.60); WHITE BLOOD COUNT 7.4 K/mm3 (4.0-10.0)
[2024-07-23 08:43] LABS: BLOOD UREA NITROGEN 67.4 mg/dL (7-18); MAGNESIUM 2.3 mg/dL (1.8-2.4)
[2024-07-23 08:44] LABS: PHOSPHOROUS 5.5 mg/dL (2.5-4.9)
[2024-07-23 08:46] LABS: CREATININE 5.2 mg/dL (0.55-1.3)
[2024-07-25 08:54] VITALS: RESP 20
[2024-07-25 09:08] LABS: EOS % 5.6 % (0-4.5); HEMATOCRIT 23.3 % (35.4-49); HEMOGLOBIN 7.4 GM/dL (11.7-16.9); LYMPH % 16.1 % (8-40); MCH 29.8 pg (25.7-33.7); MCHC 31.7 g/dl (32.0-35.9); MEAN CELL VOLUME 94.1 fl (80-96); MEAN PLT VOLUME 7.5 fl (7.5-11.1); MONO % 7.9 % (3.8-10.2); NEUT % 69.4 % (42.8-82.8); PLATELET COUNT 289 10^3/uL (134-434); RBC 2.47 M/mm3 (4.00-5.60); RDW 15.1 % (11.9-15.9); WHITE BLOOD COUNT 5.7 K/mm3 (4.0-10.0)
[2024-07-25] MEDS ORDERED: SODIUM CHLORIDE 250 ML IV PRN (09:17)
[2024-07-25 09:22] LABS: POTASSIUM 4.2 mmol/L (3.5-5.1)
[2024-07-25 09:25] LABS: ALBUMIN 2.2 g/dl (3.4-5.0); CALCIUM 7.5 mg/dL (8.5-10.1)
[2024-07-25 09:26] LABS: BLOOD UREA NITROGEN 46.4 mg/dL (7-18)
[2024-07-25 09:29] LABS: CREATININE 4.2 mg/dL (0.55-1.3)
[2024-07-25 09:30] LABS: BILIRUBIN,TOTAL 0.4 mg/dL (0.2-1); TOT PROT 5.4 g/dl (6.4-8.2)
[2024-07-25] MEDS: EPOETIN ALFA-EPBX 10,000 UNIT/ML VIAL IVPUSH ONE (10:51)
[2024-07-25 11:58] VITALS: BP 183/82; PULSE 85; TEMP 98.2
== END 2024-07-25 14:30 | disposition home or self-care (01) | DRG 194 ==
LOC: JER 08:08 → JERBED 11:01 → J8W 11:59 → JERBED 12:09 → J4W 19:08 → J6S 07-17 13:29
PROVIDERS: ADMIT Internal Medicine; ATTEND Internal Medicine
PROC: 30233N1 Transfusion of Nonautologous Red Blood Cells into Peripheral Vein, Percutaneous Approach (ICD-10-PCS; 2024-07-05)
PROC: 0TB03ZX Excision of Right Kidney, Percutaneous Approach, Diagnostic (ICD-10-PCS; 2024-07-10)
PROC: 05HY33Z Insertion of Infusion Device into Upper Vein, Percutaneous Approach (ICD-10-PCS; 2024-07-19)
PROC: 05HM33Z Insertion of Infusion Device into Right Internal Jugular Vein, Percutaneous Approach (ICD-10-PCS; 2024-07-20)
PROC: 0JH63XZ Insertion of Tunneled Vascular Access Device into Chest Subcutaneous Tissue and Fascia, Percutaneous Approach (ICD-10-PCS; 2024-07-20)
PROC: 02HV33Z Insertion of Infusion Device into Superior Vena Cava, Percutaneous Approach (ICD-10-PCS; 2024-07-20)
PROC: B518ZZA Fluoroscopy of Superior Vena Cava, Guidance (ICD-10-PCS; principal; 2024-07-20 17:00)
PROC: 5A1D70Z Performance of Urinary Filtration, Intermittent, Less than 6 Hours Per Day (ICD-10-PCS; 2024-07-25)
DX: I13.2 Hypertensive heart and chronic kidney disease with heart failure and with stage 5 chronic kidney disease, or end stage renal disease (principal); N17.9 Acute kidney failure, unspecified; I31.39 Other pericardial effusion (noninflammatory); J90 Pleural effusion, not elsewhere classified; E11.22 Type 2 diabetes mellitus with diabetic chronic kidney disease; E87.5 Hyperkalemia; N18.6 End stage renal disease; I50.31 Acute diastolic (congestive) heart failure; D64.9 Anemia, unspecified; I25.10 Atherosclerotic heart disease of native coronary artery without angina pectoris; I50.23 Acute on chronic systolic (congestive) heart failure; E87.70 Fluid overload, unspecified; E11.21 Type 2 diabetes mellitus with diabetic nephropathy; E11.319 Type 2 diabetes mellitus with unspecified diabetic retinopathy without macular edema; E11.649 Type 2 diabetes mellitus with hypoglycemia without coma
CPT/HCPCS: 36415; 36430; 50200; 71045-TC-FY; 71046-TC-FY; 71250-TC; 76000-TC-FY; 76775-TC; 76942-TC; 80048; 80053; 82550; 82553; 82728; 82962; 83036; 83516; 83520; 83540; 83550; 83735; 83880; 84100; 84155; 84165; 84484; 85025; 85027; 85610; 85730; 86038; 86160; 86225; 86256; 86704; 86705; 86803; 86850; 86900; 86901; 86922; 87340; 87389; 87517; 87635; 88300-TC; 88329; 90656; 93005; 93010; 93306-TC; 93986; 94010; 94760; 99285-25; C1750; G0008; J0885; J1644; J1756; P9058; Q5106